=== PATIENT | male | born 1980 | race African-American/Black ===

== ENCOUNTER 2020-11-12 16:49 | Emergency (ER) | payer OTHER, SELFPAY ==
--- NOTE | ~2020-11-12 | XR_ITS ---
EXAMINATION: XR KNEE, RIGHT CLINICAL INFORMATION: Pain. No history of injury. COMPARISON: None TECHNIQUE: Two views of the right knee. FINDINGS: Bones and soft tissues are normal. No fracture or joint effusion. Alignment is anatomic. Joint spaces are well maintained. No abnormal soft tissue calcification. XR/XR knee RT 2V IMPRESSION: Normal right knee.
[2020-11-12 17:00] VITALS: BP 123/87; PULSE 80; RESP 18; TEMP 36.1; O2SAT 99; BMI 21.9
--- NOTE | 2020-11-12 18:29 | ED.GENADULT ---
HPI - General Adult General Chief complaint: Extremity Injury, Lower Stated complaint: Knee pain Time Seen by Provider: 11/12/20 17:26 Source: patient Mode of arrival: ambulatory Limitations: no limitations History of Present Illness HPI narrative: 40-year-old male previously healthy here with right knee swelling. The patient tells me that he has had years of various joint swelling and pain. He denies any fevers or chills. Denies weight loss or rash. Tells me that he went to his primary care doctor today however due to the wait t he left prior to being seen by his primary care doctor. It is recommended that he follow up with rheumatology in the past however he has not done so. Related Data Previous Rx's Medication Instructions Recorded prednisone 40 mg PO DAILY #10 tab 11/12/20 Allergies Allergy/AdvReac Type Severity Reaction Status Date / Time Penicillins AdvReac Intermediate Unknown Verified 11/12/20 15:36 Review of Systems Review of Systems: Yes all other systems are reviewed and are negative Constitutional: Constitutional: Reports no additional constitutional complaints, Denies body ache(s), Denies chills, Denies fever(s), Denies headache(s) and Denies weakness Eyes: Eyes: Reports no additional eye complaints and Denies change in vision ENT: Reports system reviewed and no additional complaints, except as documented, Denies dizziness, Denies headache(s), Denies nasal congestion, Denies nasal discharge and Denies neck pain Cardiovascular: Cardiovascular: Reports no additional cardiovascular complaints, Denies chest pain, Denies leg edema and Denies dyspnea Respiratory: Respiratory: Reports no additional respiratory complaints, Denies cough and Denies dyspnea Gastrointestinal: Gastrointestinal: Reports no additional gastrointestinal complaints, Denies abdominal pain, Denies diarrhea, Denies nausea and Denies vomiting Genitourinary: Genitourinary: Denies urinary incontinence Musculoskeletal: Musculoskeletal: Reports no additional musculoskeletal complaints, Denies back pain, Denies arthralgias, Reports joint swelling, Denies limited range of motion, Denies neck pain, Denies numbness and Denies tingling Integumentary/Breasts: Skin/Breast: Reports system reviewed and no additional complaints, except as docu and Denies rash Neurologic: Reports system reviewed and no additional complaints, except as documented, Denies Abnormal speech present, Denies dizziness, Denies headache(s), Denies numbness, Denies tingling and Denies weakness PMF Past Medical History Attestation statement: The following information was validated with the patient. Source: old records reviewed and nursing notes reviewed Surgical History No history of previous surgery Family History Family History Mother No problems noted. Father No problems noted. Social History Social History Alcohol intake: never Smoking Status: Current every day smoker Smoked in Last 30 Days: No Use of substances other than those prescribed or required for medical reasons: No Advance Directives: No Advance Directives Information Provided: Yes Physical Exam Vital Signs: Vital Signs: Last Vital Signs Temp 97.0 F 11/12/20 17:00 Pulse 80 11/12/20 17:00 Resp 18 11/12/20 17:00 BP 123/87 11/12/20 17:00 Pulse Ox 99 11/12/20 17:00 Body Mass Index 21.9 Const: General: cooperative, healthy appearing, comfortable and no acute distress Orientation/consciousness: patient oriented x3 Limitations: no limitations HENMT: Head: Yes normal to inspection Ears: hearing grossly normal bilaterally General nose exam: Normal external nose present Face and sinus: Yes normal facial exam Mouth: Normal oral and palatal mucosa present Throat: Yes posterior oropharynx normal Eyes: General: appearance normal, both eyes and all related structures Pupils: Equal, round and reactive pupils present Neck: Neck: Yes normal visual inspection Chest: Chest palpation & inspection: normal inspection of the chest Resp: Effort & Inspection: normal respiratory effort Auscultation: clear to auscultation bilaterally Cardio: Rate: regular rate Rhythm: regular rhythm Peripheral pulses: Peripheral pulses 2+ throughout GI: Inspection: Yes normal to inspection Palpation (GI): Soft to palpation and nontender Auscultation: normal bowel sounds Back/Spine/Pelvis: Thoracic/Lumbar Spine: thoracic and lumbar spine normal to inspection Skin: General skin exam: no rashes or lesions noted Neuro: General: patient oriented x3, no focal motor deficits and normal sensation to monofilament Cranial nerves: Yes Equal, round and reactive pupils present Cognition (Neuro): normal cognition Speech: No Abnormal speech present Gait exam (Neuro): Normal gait present Motor exam (neuro): 5/5 motor strength present throughout Extrem: Other: To the right knee there is mild warmth with moderate swelling. No pain. Full range of motion. No redness General: Yes normal to inspection Course Course Course Narrative: Atraumatic right knee swelling with mild warmth but no pain and full range of motion. Less likely septic joint with full range of motion. Patient has a history of multiple episodes of joint swelling and has been recommended to follow up with Dermatology in the past but has not done so. Patient here requesting an anti-inflammatory and a rheumatology referral. X-ray shows no bony abnormality. Likely underlying gout versus RA. Recommend short course of prednisone and follow up with Dermatology Reviewed worrisome signs and symptoms and when to return to the emergency department. Comfortable discharge home. Medical Decision Making Medical Records Medical records reviewed: Yes I reviewed the patient's medical records. Lab Data Lab results reviewed: Yes I reviewed the patient's lab results. Imaging Data knee xray: Attestation: I personally reviewed and interpreted this imaging study as follows: Radiologist's impression: EXAMINATION: XR KNEE, RIGHT CLINICAL INFORMATION: Pain. No history of injury. COMPARISON: None TECHNIQUE: Two views of the right knee. FINDINGS: Bones and soft tissues are normal. No fracture or joint effusion. Alignment is anatomic. Joint spaces are well maintained. No abnormal soft tissue calcification. XR/XR knee RT 2V IMPRESSION: Normal right knee. Discharge Plan Discharge Clinical Impression: Swelling of joint, knee, right Patient Disposition: Home, Self-Care Instructions: Swollen Knee Joint (ED) Additional Instructions: ice, nora wrap for comfort Prescriptions: New prednisone 20 mg tablet 40 mg PO DAILY Qty: 10 RF: 0 Referrals: Jaida Mesa MD [Physician] - 2 days Interventions: ED Discharge Assessment Last Done: 11/12/20 18:11 Discharge Date/Time: 11/12/20 18:11
== END 2020-11-12 18:11 | disposition home or self-care (01) ==
PROVIDERS: Emergency Provider Internal Medicine
DX: M25.461 Effusion, right knee (principal); M25.561 Pain in right knee; F17.200 Nicotine dependence, unspecified, uncomplicated
CPT/HCPCS: 73560; 99283; 99284

== ENCOUNTER 2020-12-25 11:04 | Outpatient (REF) | payer OTHER, SELFPAY | END 2020-12-25 11:05 | disposition home or self-care (01) | LOC: HO.XRAY 11:04 | PROVIDERS: PCP Internal Medicine; Visit Provider Student in an Organized Health Care Education/Training Program | DX: M25.50 Pain in unspecified joint (principal) | CPT/HCPCS: 99202 ==

== ENCOUNTER 2021-01-06 15:21 | Outpatient (REF) | payer OTHER, SELFPAY ==
--- NOTE | ~2021-01-06 | XR_ITS ---
EXAMINATION: XR BILATERAL KNEE XR LUMBAR SPINE XR AP PELVIS CLINICAL INFORMATION: Pain. COMPARISON: None. TECHNIQUE: AP pelvis one view. Lumbar spine 4 views. 3 views each knee. FINDINGS: AP PELVIS: There is normal symmetry of bilateral hip joints and SI joints. No bony erosive changes. There is no acute fracture, lytic or sclerotic process. LUMBAR SPINE: There is normal lumbar lordosis. The vertebral heights and alignment are normal. There is mild loss of L5-S1 disc height with ventral spondylosis. Rest of the disc heights are normal. No visible acute fracture, dislocation or lytic process seen. RIGHT KNEE: The tricompartment joint space is maintained normal. No loose bodies, bony erosive changes or abnormal joint effusion seen. LEFT KNEE: The tricompartment joint space is maintained normal. There is no acute fracture, lytic or sclerotic process. No abnormal joint effusion seen. XR/XR knee LT 3V IMPRESSION: Unremarkable AP pelvis exam. Degenerative disc changes with ventral spondylosis at L5-S1 disc level. Unremarkable bilateral knee exam.
--- NOTE | ~2021-01-06 | XR_ITS ---
EXAMINATION: XR BILATERAL KNEE XR LUMBAR SPINE XR AP PELVIS CLINICAL INFORMATION: Pain. COMPARISON: None. TECHNIQUE: AP pelvis one view. Lumbar spine 4 views. 3 views each knee. FINDINGS: AP PELVIS: There is normal symmetry of bilateral hip joints and SI joints. No bony erosive changes. There is no acute fracture, lytic or sclerotic process. LUMBAR SPINE: There is normal lumbar lordosis. The vertebral heights and alignment are normal. There is mild loss of L5-S1 disc height with ventral spondylosis. Rest of the disc heights are normal. No visible acute fracture, dislocation or lytic process seen. RIGHT KNEE: The tricompartment joint space is maintained normal. No loose bodies, bony erosive changes or abnormal joint effusion seen. LEFT KNEE: The tricompartment joint space is maintained normal. There is no acute fracture, lytic or sclerotic process. No abnormal joint effusion seen. XR/XR pelvis 1-2V IMPRESSION: Unremarkable AP pelvis exam. Degenerative disc changes with ventral spondylosis at L5-S1 disc level. Unremarkable bilateral knee exam.
--- NOTE | ~2021-01-06 | XR_ITS ---
EXAMINATION: XR BILATERAL KNEE XR LUMBAR SPINE XR AP PELVIS CLINICAL INFORMATION: Pain. COMPARISON: None. TECHNIQUE: AP pelvis one view. Lumbar spine 4 views. 3 views each knee. FINDINGS: AP PELVIS: There is normal symmetry of bilateral hip joints and SI joints. No bony erosive changes. There is no acute fracture, lytic or sclerotic process. LUMBAR SPINE: There is normal lumbar lordosis. The vertebral heights and alignment are normal. There is mild loss of L5-S1 disc height with ventral spondylosis. Rest of the disc heights are normal. No visible acute fracture, dislocation or lytic process seen. RIGHT KNEE: The tricompartment joint space is maintained normal. No loose bodies, bony erosive changes or abnormal joint effusion seen. LEFT KNEE: The tricompartment joint space is maintained normal. There is no acute fracture, lytic or sclerotic process. No abnormal joint effusion seen. XR/XR knee RT 3V IMPRESSION: Unremarkable AP pelvis exam. Degenerative disc changes with ventral spondylosis at L5-S1 disc level. Unremarkable bilateral knee exam.
--- NOTE | ~2021-01-06 | XR_ITS ---
EXAMINATION: XR BILATERAL KNEE XR LUMBAR SPINE XR AP PELVIS CLINICAL INFORMATION: Pain. COMPARISON: None. TECHNIQUE: AP pelvis one view. Lumbar spine 4 views. 3 views each knee. FINDINGS: AP PELVIS: There is normal symmetry of bilateral hip joints and SI joints. No bony erosive changes. There is no acute fracture, lytic or sclerotic process. LUMBAR SPINE: There is normal lumbar lordosis. The vertebral heights and alignment are normal. There is mild loss of L5-S1 disc height with ventral spondylosis. Rest of the disc heights are normal. No visible acute fracture, dislocation or lytic process seen. RIGHT KNEE: The tricompartment joint space is maintained normal. No loose bodies, bony erosive changes or abnormal joint effusion seen. LEFT KNEE: The tricompartment joint space is maintained normal. There is no acute fracture, lytic or sclerotic process. No abnormal joint effusion seen. XR/XR lumbar spine 2-3V IMPRESSION: Unremarkable AP pelvis exam. Degenerative disc changes with ventral spondylosis at L5-S1 disc level. Unremarkable bilateral knee exam.
[2021-01-06 16:04] LABS: MANUAL DIFF FLAG NO
[2021-01-06 16:08] LABS: Basophils Absolute Auto 0.1 X10*3/uL (0.0-0.2); Basophils Percent Auto 1.4 % (0-2); Eosinophils Absolute Auto 0.3 X10*3/uL (0.0-0.4); Eosinophils Percent Auto 3.8 % (0-4); Hematocrit 45.5 % (42-52); Hemoglobin 15.3 g/dl (14.0-18.0); Imm Gran Abs Auto 0.01 X10*3/uL (0.00-0.03); Imm Gran Pct Auto 0.2 % (0.0-0.4); Lymphocytes Absolute Auto 2.9 X10*3/uL (1.2-4.9); Lymphocytes Percent Auto 43.4 % (20-40); Mean Corpuscular HGB Conc 33.6 g/dl (31.0-36.0); Mean Corpuscular Hemoglobin 31.8 pg (27.0-33.0); Mean Corpuscular Volume 94.6 fL (80-98); Mean Platelet Volume 10.1 fL (9.4-12.4); Monocytes Absolute Auto 0.6 X10*3/uL (0.1-1.2); Monocytes Percent Auto 8.3 % (2-11); Neutrophils Absolute Auto 2.9 X10*3/uL (2.0-8.3); Neutrophils Percent Auto 42.9 % (45-73); Platelet Count 312 X10*3/uL (160-400); Red Blood Count 4.81 X10*6/uL (4.60-5.80); Red Cell Distribution Width 14.1 % (11.0-16.0); White Blood Count 6.6 X10*3/uL (4.8-10.8)
[2021-01-06 16:10] LABS: Glucose Urine UA NEG (NEG); Leukocyte Esterase Urine NEG (NEG); Nitrite Urine NEG (NEG); Specific Gravity - Urine 1.025 (1.005-1.025); Urine Blood NEG (NEG); Urine Ketones NEG (NEG); Urine Protein NEG (NEG-TRACE)
[2021-01-06 16:17] LABS: Appearance Urine CLEAR; Color Urine YELLOW
[2021-01-06 16:38] LABS: RBC Urine 0-2 /HPF (0); WBC Urine 0-2 /HPF (0-4)
[2021-01-06 16:39] LABS: Mucus Urine 1+ /LPF; Squamous Epithelial Cell Urine TRACE /LPF
[2021-01-06 16:46] LABS: Erythrocyte Sedimentation Rate 2 MM/HR (0-15)
[2021-01-06 16:51] LABS: Alanine Aminotransferase 17 U/L (0-40); Albumin Level 4.2 g/dL (3.5-5.0); Alkaline Phosphatase 82 U/L (39-117); Anion Gap 12 (12-20); Aspartate Amino Transferase 17 U/L (5-37); Bilirubin Total 0.4 mg/dL (0.0-1.0); Blood Urea Nitrogen 12 mg/dL (9-16); C Reactive Protein 0.12 mg/dL (< or = 0.50); Calcium 9.2 mg/dL (8.4-10.2); Carbon Dioxide 29 mmol/L (22-29); Chloride 106 mmol/L (96-108); Estimated Glomerular Filt Rate > 60; Glucose Random 87 mg/dL (60-115); Potassium 4.1 mmol/L (3.3-5.1); Rheumatoid Factor < 15.0 IU/mL (<15.0); Sodium 143 mmol/L (135-145); Uric Acid 4.5 mg/dL (3.4-7.0)
[2021-01-07 10:16] LABS: Lyme Blot >10.00 index
[2021-01-07 13:57] LABS: Antibody to SS-A Antigen <1.0 NEG AI (<1.0 NEG); Antibody to SS-B Antigen <1.0 NEG AI (<1.0 NEG)
[2021-01-08 00:06] LABS: Anti Nuclear Antibody Pattern Nuclear, Speckled; Anti Nuclear Antibody Screen POSITIVE (NEGATIVE); Anti Nuclear Antibody Titer 1:40 titer
[2021-01-11 12:21] LABS: Cyclic Citrullinated Peptide <16 UNITS
[2021-01-12 00:06] LABS: 18 KD (IgG) Band REACTIVE; 23 KD (IgG) Band NON-REACTIVE; 23 KD (IgM) Band NON-REACTIVE; 28 KD (IgG) Band REACTIVE; 30 KD (IgG) Band REACTIVE; 39 KD (IgM) Band REACTIVE; 41 KD (IgM) Band NON-REACTIVE; 45 KD (IgG) Band REACTIVE; 58 KD (IgG) Band REACTIVE; 66 KD (IgG) Band REACTIVE; 93 KD (IgG) Band REACTIVE; Lyme IgG Blot Interp POSITIVE (NEGATIVE); Lyme IgM Blot Interp NEGATIVE (NEGATIVE)
[2021-01-12 09:34] LABS: Lyme Abs Screen POSITIVE
[2021-01-13 15:11] LABS: HLA B27 Negative (Negative)
== END 2021-01-06 15:22 | disposition home or self-care (01) ==
LOC: HO.LAB 15:21
PROVIDERS: Visit Provider Student in an Organized Health Care Education/Training Program
DX: M25.50 Pain in unspecified joint (principal)
CPT/HCPCS: 36415; 72100; 72170; 73562; 80053; 81001; 84550; 85025; 85652; 86038; 86039; 86140; 86200; 86235; 86431; 86617; 86618; 86812

== ENCOUNTER → 2021-01-13 14:38 | Outpatient (BNVA) | payer OTHER, SELFPAY | PROVIDERS: PCP Internal Medicine; Visit Provider Student in an Organized Health Care Education/Training Program | DX: A69.20 Lyme disease, unspecified (principal); M25.50 Pain in unspecified joint | CPT/HCPCS: 99212 ==

== ENCOUNTER 2021-03-03 18:31 | Emergency (ER) | payer OTHER, SELFPAY ==
[2021-03-03 19:05] VITALS: BP 148/99; PULSE 66; RESP 18; TEMP 37; O2SAT 100; BMI 22.5
--- NOTE | 2021-03-03 20:42 | ED_ITS ---
HPI - General Adult General Chief complaint: General Medical Stated complaint: Leg injury Time Seen by Provider: 03/03/21 20:34 Source: patient Mode of arrival: ambulatory Limitations: no limitations History of Present Illness HPI narrative: Patient is a 40-year-old male with a past medical history of Lyme disease 3 years ago. He states he has severe joint numbness in inflammation and bilateral leg weakness, he walks with a cane. He states he did just finish a 1 month prescription of doxycycline in the end of January, he states he took 5 weeks but did not take the 6 week because his symptoms were getting worse. He has tried to make an appointment with his PCP for referral to neurology but has been unsuccessful. Patient is seeking a referral to Neurology. Related Data Previous Rx's Medication Instructions Recorded doxycycline hyclate 100 mg tablet 100 mg PO BID #56 tab 01/13/21 Allergies Allergy/AdvReac Type Severity Reaction Status Date / Time Penicillins AdvReac Intermediate Swelling Verified 01/13/21 14:41 Review of Systems Review of Systems: Yes all other systems are reviewed and are negative [facility] Past Medical History Surgical History No history of previous surgery Family History Family History Mother No problems noted. Father No problems noted. Social History Social History Alcohol intake: never Patient Tobacco Use Status: Former Tobacco user Tobacco use type: Cigarette Advance Directives: No Advance Directives Information Provided: Yes Physical Exam Vital Signs: Vital Signs: Last Vital Signs Temp 98.6 F 03/03/21 19:05 Pulse 66 03/03/21 19:05 Resp 18 03/03/21 19:05 BP 148/99 H 03/03/21 19:05 Pulse Ox 100 03/03/21 19:05 Body Mass Index 22.5 Const: General: cooperative, healthy appearing, comfortable and no acute distress Nutritional Appearance: thin Orientation/consciousness: patient oriented x3 Limitations: ambulation with cane Eyes: General: appearance normal, both eyes and all related structures Resp: Effort & Inspection: normal respiratory effort and able to speak in complete sentences Neuro: General: patient oriented x3 Gait exam (Neuro): Assistive device used Motor exam (neuro): strength not 5/5 throughout (5/5 upper extremities, 3/5 lower extremities) Sensory Exam: Normal double simultaneous stimulation for sensation Extrem: General: Yes normal to inspection and Yes full ROM Discharge Plan Discharge Clinical Impression: Bilateral leg weakness, Lyme disease Patient Disposition: Home, Self-Care Additional Instructions: I have sent a referral for you to see 1 of the neurologist at [facility], please be sure to follow-up with this appointment and her PCP if her symptoms continue. Prescriptions: No Action doxycycline hyclate 100 mg tablet 100 mg PO BID Qty: 56 RF: 0 Referrals: Polo London MD [Physician] - 2 days (Lower extremity weakness status post Lyme disease with 30 days of doxy)
== END 2021-03-03 20:45 | disposition home or self-care (01) ==
PROVIDERS: Emergency Provider Emergency Medicine; PCP Internal Medicine
DX: A69.20 Lyme disease, unspecified (principal); M62.81 Muscle weakness (generalized); F17.210 Nicotine dependence, cigarettes, uncomplicated; Z71.6 Tobacco abuse counseling; Z79.899 Other long term (current) drug therapy
CPT/HCPCS: 99283

== ENCOUNTER 2021-05-04 09:08 | Day surgery (SDC) | payer OTHER, SELFPAY ==
--- NOTE | ~2021-05-04 | FL_ITS ---
EXAMINATION: XR LUMBAR PUNCTURE CLINICAL INFORMATION: Peripheral neuropathy. COMPARISON: None TECHNIQUE: Following explaining fluoroscopy-guided lumbar puncture procedure, benefits and risk, a written consent was obtained. Patient was placed prone on fluoroscopy table and low back area was cleaned and draped in usual sterile manner. 1% lidocaine was injected puncture site. A 22-gauge spinal needle was then advanced from the left upper midlung region intrathecally at the L4-L5 disc level. A observing CSF return following removal of the stylet, patient was quickly placed in left lateral decubitus view and opening CSF pressure was obtained. Subsequently fluid was collected in 4 test tubes. The stylet was introduced the needle removed with complete hemostasis achieved at puncture site. Sterile dressing applied postprocedure. Patient tolerated procedure extremely well. FINDINGS: Fluoroscopy images the vertebral heights, alignment and disc heights are normal. There is a needle positioned at L4-L5 disc level. The opening CSF pressure is high measuring 18 cm of water. Approximately 7 mL of clear CSF fluid was collected in 4 test tubes. FLUOROSCOPY TIME: 0.2 minutes DOSE AREA PRODUCT: 0.987 uGy-m2 (microgray-meter squared) FL/FL guided lumbar puncture LP IMPRESSION: Successful fluoroscopy-guided L4-L5 lumbar puncture performed. Opening CSF pressure measured 18 cm of water.
[2021-05-04 09:41] VITALS: BMI 22.5
[2021-05-04 10:09] LABS: MANUAL DIFF FLAG NO
[2021-05-04 10:12] LABS: Basophils Absolute Auto 0.1 X10*3/uL (0.0-0.2); Eosinophils Absolute Auto 0.3 X10*3/uL (0.0-0.4); Eosinophils Percent Auto 4.1 % (0-4); Hematocrit 44.4 % (42-52); Hemoglobin 15.3 g/dl (14.0-18.0); Imm Gran Abs Auto 0.01 X10*3/uL (0.00-0.03); Imm Gran Pct Auto 0.2 % (0.0-0.4); Lymphocytes Absolute Auto 2.9 X10*3/uL (1.2-4.9); Lymphocytes Percent Auto 47.5 % (20-40); Mean Corpuscular HGB Conc 34.5 g/dl (31.0-36.0); Mean Corpuscular Hemoglobin 31.4 pg (27.0-33.0); Mean Corpuscular Volume 91.2 fL (80-98); Mean Platelet Volume 10.1 fL (9.4-12.4); Monocytes Absolute Auto 0.5 X10*3/uL (0.1-1.2); Monocytes Percent Auto 7.9 % (2-11); Neutrophils Absolute Auto 2.4 X10*3/uL (2.0-8.3); Neutrophils Percent Auto 39.3 % (45-73); Platelet Count 281 X10*3/uL (160-400); Red Blood Count 4.87 X10*6/uL (4.60-5.80); Red Cell Distribution Width 13.2 % (11.0-16.0); White Blood Count 6.1 X10*3/uL (4.8-10.8)
[2021-05-04 10:18] LABS: INTERNATIONAL NORM RATIO 0.9 (0.9-1.1); Prothrombin Time 10.4 SEC (9.9-13.0)
[2021-05-04 10:21] LABS: Partial Thromboplastin Time 31.6 SEC (24.1-38.0)
[2021-05-04 12:25] VITALS: BP 142/82; PULSE 68; RESP 18; TEMP 36.6; O2SAT 98
[2021-05-04 12:55] VITALS: BP 123/85; PULSE 65; RESP 17; O2SAT 99
[2021-05-04 13:13] LABS: Glucose CSF 60 mg/dL; Total Protein CSF 57.2 mg/dL (15-45)
[2021-05-04 13:25] VITALS: BP 128/81; PULSE 61; RESP 18; O2SAT 99
[2021-05-04 13:32] LABS: CSF Appearance Clear, Colorless; CSF Tube # 1
[2021-05-04 13:55] VITALS: BP 125/82; PULSE 69; RESP 18; O2SAT 99
[2021-05-04 13:58] LABS: Oligoclonal Serum Yes
[2021-05-04 14:02] LABS: Appearance CSF CLEAR; CSF Tube # 4; Color CSF COLORLESS; White Blood Cell CSF 1 MM*3
[2021-05-04 14:03] LABS: Red Blood Cell CSF 0 MM*3
[2021-05-04 14:07] LABS: CSF Monos 11 %; Lymphocytes CSF 89 %
[2021-05-04 14:25] VITALS: BP 137/83; PULSE 70; RESP 18; TEMP 36.6; O2SAT 100
[2021-05-07 14:36] LABS: Albumin 4.1 g/dL (3.5-5.2); Albumin, CSF 41.6 mg/dL (8.0-42.0); IgG 951 mg/dL (600-1640); IgG Synthesis Rate -0.7 mg/24 h (-9.9-3.3); IgG, CSF 4.8 mg/dL (0.8-7.7)
== END 2021-05-04 14:33 | disposition home or self-care (01) ==
LOC: HO.SSS 09:09
PROVIDERS: Psychiatry & Neurology Neurology; PCP Internal Medicine; Visit Provider Radiology Diagnostic Radiology
PROC: 009U3ZZ Drainage of Spinal Canal, Percutaneous Approach (ICD-10-PCS; CPT 62270; principal; 2021-05-04 11:00)
DX: G62.9 Polyneuropathy, unspecified (principal)
CPT/HCPCS: 36415; 62328; 82042; 82945; 83916; 84157; 85025; 85610; 85730; 87015; 87070; 87205; 89051

== ENCOUNTER 2021-05-11 10:45 | Outpatient (REF) | payer OTHER, SELFPAY ==
[2021-05-12 08:07] LABS: Syphilis Screen Nonreactive (Nonreactive)
[2021-05-12 08:30] LABS: HBS Num1 1.28 mIU/mL (0-7.99); HBsAGNum1 0.17 S/CO (0.00-0.99); HIV AB/AG Nonreactive (Nonreactive); HIV Num 1 0.09 S/CO (0.00-0.99); Hepatitis B Surface Antigen Negative (Negative); ~HepC Num1 0.13 S/CO (0.00-0.79); ~Hepatitis B Surface Antibody NONREACTIVE (Nonreactive); ~Hepatitis C Antibody Nonreactive (Nonreactive)
[2021-05-13 13:32] LABS: Immunoglobulin A 202 mg/dL (47-310)
[2021-05-13 19:52] LABS: Immunoglobulin G Subclass 1 495 mg/dL (382-929); Immunoglobulin G Subclass 2 508 mg/dL (241-700); Immunoglobulin G Subclass 3 74 mg/dL (22-178); Immunoglobulin G Subclass 4 14.6 mg/dL (4-86); Immunoglobulin G Total 1156 mg/dL (600-1640)
[2021-05-14 08:41] LABS: TS Negative Control Passed; TS Panel A 0; TS Panel B 0; TS Positive Control Passed; TSpotTB Negative (SeeBelow)
== END 2021-05-11 10:46 | disposition home or self-care (01) ==
LOC: HO.LAB 10:45
PROVIDERS: PCP Internal Medicine; Visit Provider Internal Medicine
DX: Z11.4 Encounter for screening for human immunodeficiency virus [HIV] (principal); R76.8 Other specified abnormal immunological findings in serum; M79.2 Neuralgia and neuritis, unspecified; Z87.891 Personal history of nicotine dependence; Z79.899 Other long term (current) drug therapy
CPT/HCPCS: 36415; 82784; 86481; 86706; 86780; 86803; 87340; 87389; 99202

== ENCOUNTER 2021-05-19 16:20 | Outpatient (REF) | payer OTHER, SELFPAY | END 2021-05-19 16:21 | disposition home or self-care (01) | LOC: HO.MRI 16:20 | PROVIDERS: Visit Provider Psychiatry & Neurology Neurology | DX: Z13.89 Encounter for screening for other disorder (principal) ==

== ENCOUNTER 2021-06-11 08:00 | Outpatient (RCR) | payer OTHER, SELFPAY ==
[2021-06-09 08:06] VITALS: BP 132/85; PULSE 90
--- NOTE | 2021-06-09 11:19 | MHC.PT.EP ---
[facility] [place] Office [place] Office [place] Office [address] Viridiana Muñoz [address] [phone] F: [phone] F: [phone] F: [phone] F: [phone] Physical Therapy Plan of Care Date of Evaluation: Date of Surgery: Diagnosis: gait disorder, Lyme Assessment: 40 y/o male referred to PT with gait disorder, Lyme. Of note, he reports I just woke up stiff one morning in 2017 of insidious onset and had on/off wandering joint pain and swelling. He eventually f/u with rheumatology and was then dx with chronic Lyme disease December 2020. He was giving doxycycline but did not finish the dose as he felt like it made his sx worse. His sx include poor balance, difficulty walking (uses single point cane), weakness B LE, and numbness/ tingling/ burning of entire B LE and some numbness in his abdomen. Denies changes in bowel/ bladder. 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 Examination shows decreased lumbar AROM, decreased B LE strength (< 3+/5 throughout B LE), lacks proprioception at B great toes (intact at ankle), patella DTR 3+ B, achilles DTR 2+B, (-) for clonus, normal coordination/ SHIRA/ heel-ivan, poor balance, and impaired gait pattern. S/s consistent with Lyme Disease, however ? whether there is lumbar spine involvement resulting in significant weakness. Recommend PT 2x/week for 5 weeks to address impairments, implement HEP, and optimize functional mobility. Frequency and Duration: The patient will be seen 2x/week for 5 weeks Short Term Goals: 3 weeks 1. I with HEP 2. Pt will improve LE strength by one MMT grade to facilitate ambulation 3. Demonstrate SLR with normal trajectory Night Clerk Goals: 5 weeks 1. I with HEP and self management of sx 2. Pt will be able to ambulate > 30min with LRAD 3. Pt will be able to ascend/ descend stairs with rail Treatment Plan: Modalities to reduce pain, spasms and effusion. Manual therapy to restore motion and function. Therapeutic exercise to improve strength and flexibility. Neuromuscular re-education for posture and balance. Therapeutic activities to return to functional activities of daily living. Electronically signed by: Shira Dunne PT Please sign and return to therapist. Thank you for your referral.
--- NOTE | 2021-06-22 14:49 | MHC.PT.DC ---
[facility] [place] Office [place] Office [place] Office [address] Viridiana Muñoz [address] [facility] [phone] F: [phone] F: [phone] F: [phone] F: [phone] Physical Therapy Discharge Report Diagnosis: gait disorder, Lyme Date of Surgery: Date of Evaluation: 06/09/21 Date of Discharge: 06/22/21 Treatments to Date: 2 Cancellations to Date: 0 No Shows to Date: 2 Discharge Status: Visit Non-compliance Discharge Summary: D/c secondary to noncompliance with scheduling policy and 3 consecutive no show visit. Electronically signed by: Shira Dunne PT Please sign and return to therapist. Thank you for your referral.
== END 2021-06-22 14:50 | disposition home or self-care (01) ==
LOC: HO.PT 08:00
PROVIDERS: Visit Provider Psychiatry & Neurology Neurology
DX: R26.9 Unspecified abnormalities of gait and mobility (principal)
CPT/HCPCS: 97110; 97162

== ENCOUNTER 2021-10-12 18:10 | Outpatient (REF) | payer OTHER, SELFPAY ==
--- NOTE | ~2021-10-12 | MR_ITS ---
EXAMINATION: MR CERVICAL SPINE WITHOUT AND WITH CONTRAST MR THORACIC SPINE WITHOUT AND WITH CONTRAST CLINICAL INFORMATION: Paraparesis. COMPARISON: None available. TECHNIQUE: MRI of the cervical and thoracic spine was obtained using routine sequences without and following the administration of 9 mL of Gadavist intravenous contrast. FINDINGS: Cervical Spine: Straightening of the normal cervical lordosis. Otherwise, normal anatomic alignment. Normal, homogeneous marrow signal throughout. The vertebral body heights are maintained. Mild degenerative disc disease throughout the cervical spine with partial disc desiccation. Otherwise, the intervertebral disc heights are largely maintained. The spinal cord is normal in appearance. No demonstrated spinal cord signal abnormalities. No abnormal contrast enhancement. Limited evaluation of the soft tissues of the neck without demonstrated abnormalities. The flow voids of the major cervical vessels are maintained. Normal appearance of the cervicomedullary junction and visualized posterior fossa. SPINAL LEVELS: C2-C3: Mild posterior disc bulging. There is mild left and no right uncovertebral joint arthropathy. There is no facet joint arthropathy. There is no neural foraminal stenosis. There is no spinal canal stenosis. C3-C4: Mild posterior disc bulging. There is mild bilateral uncovertebral joint arthropathy. There is mild bilateral facet joint arthropathy. There is no neural foraminal stenosis. There is no spinal canal stenosis. C4-C5: Mild disc-osteophyte complex. There is mild bilateral uncovertebral joint arthropathy. There is no facet joint arthropathy. There is no neural foraminal stenosis. There is no spinal canal stenosis. C5-C6: Minimal posterior disc bulging. There is mild bilateral uncovertebral joint arthropathy. There is mild left and no right facet joint arthropathy. There is mild left and no right neural foraminal stenosis. There is no spinal canal stenosis. C6-C7: Mild disc-osteophyte complex. There is no uncovertebral joint arthropathy. There is mild bilateral facet joint arthropathy. There is no neural foraminal stenosis. There is no spinal canal stenosis. C7-T1: Mild posterior disc bulging. There is no uncovertebral joint arthropathy. There is no facet joint arthropathy. There is no neural foraminal stenosis. There is no spinal canal stenosis. Thoracic Spine: Normal anatomic alignment. There is compression deformity of the superior endplate of T8 with 25% loss of central body height. Associated marrow edema and enhancement along the superior endplate of T8. The remaining thoracic vertebral body heights are maintained. There is a nonspecific 0.6 cm T2 hyperintense lesion with associated enhancement along the superior endplate of T1. There is a 1.6 cm lipid rich lesion suggestive of a hemangioma within the T9 vertebral body. There is a heterogeneously T2 hyperintense and enhancing lesion within the dorsal epidural space at the levels of T2-T4, measuring 2.4 x 1.1 x 4.4 cm. Moderate tapered thickening of the dorsal epidural space surrounding this lesion extending from the levels of T2-T7. There is also an enhancing lesion with similar characteristics in the dorsal epidural space centered at the levels of T10-T11, measuring 1.1 x 0.7 x 2.3 cm. Tapered thickening of the dorsal epidural space surrounding this lesion from T9-T12. Enhancing tissue at the levels of T10-T11 extends into the posterior paraspinal soft tissues surrounding the T10 spinous process and T10-T11 interspinous ligament. There is T2 hyperintensity and enhancement of the T10 posterior elements. No additional suspicious marrow signal abnormalities. There is severe compression of the spinal cord at the levels of T3-T4. There appears to be associated mildly increased T2 signal within the spinal cord from the levels of T3-T5. No additional spinal cord signal abnormalities. No demonstrated no demonstrated intrathecal or intramedullary lesions. No additional significant abnormalities of the paraspinal musculature. Limited evaluation of the intrathoracic structures without significant abnormalities. The descending thoracic aorta is of normal contour and caliber. AXIAL SPINAL LEVELS: Normal annular contours. There is mild multilevel facet joint arthropathy. The aforementioned lesion at the levels of T2-T4 partially extends into the left-sided T3-T4 neural foramen causing moderate stenosis. No additional neural foraminal stenosis. As noted above, there is severe spinal canal stenosis at the levels of T3 and T4. No additional spinal canal stenosis. MR/MR thoracic spine wo/w con IMPRESSION: 1. There are prominent enhancing lesions centered within the dorsal epidural space at the levels of T2-T4 and T10-T11. This leads to severe spinal canal stenosis with cord compression at the levels of T3-T4. The lesion at the level of T10-T11 is associated with enhancement and edema within the posterior elements of T10 with extraosseous components in the posterior paraspinal soft tissues surrounding the T10 spinous process and T10-T11 interspinous ligament. There is also a nonspecific 0.6 cm enhancing lesion in the T1 vertebral body. Overall findings are suspicious for nonspecific metastatic disease. 2. Mild compression deformity of the superior endplate of T8 with 25% loss of central body height. Associated marrow edema and enhancement may be posttraumatic in nature. However, it would be difficult to fully exclude an underlying lesion on this exam. 3. Mild multilevel degenerative spondyloarthropathy of the cervical spine as described in detail above. No overt cervical spinal canal stenosis or nerve root compression. This critical result was discussed with Dr. London at 19:30 on 10/12/2021 and it was ascertained that the content and urgency of the report was understood at the time of direct communication.
== END 2021-10-12 18:11 | disposition home or self-care (01) ==
LOC: HO.MRI 18:10
PROVIDERS: Visit Provider Psychiatry & Neurology Neurology
DX: G82.20 Paraplegia, unspecified (principal)
CPT/HCPCS: 72156; 72157; A9585

== ENCOUNTER → 2021-10-22 09:43 | Outpatient (BNV) | payer OTHER, SELFPAY | PROVIDERS: PCP Internal Medicine; Referring Provider Internal Medicine; Visit Provider Internal Medicine | DX: D43.4 Neoplasm of uncertain behavior of spinal cord (principal) | CPT/HCPCS: 99204; 99214 ==

== ENCOUNTER 2021-11-01 07:00 | Day surgery (SDC) | payer OTHER, SELFPAY ==
--- NOTE | 2021-10-29 10:25 | HO.ANESPROP2 ---
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 Father No problems noted. Surgical History Surgical History (Updated 10/22/21 @ 10:11 by Rosi Jane MD) No history of previous surgery Social History Social History Housing: House Alcohol intake: never Patient Tobacco Use Status: Current everyday Tobacco user Tobacco use type: Cigarette Cigarettes Per Day: 3 Years Smoked: 15 Smoked in Last 30 Days: Yes e-Cigarette/Vaping Use: Never Used Second Hand Smoke Exposure: No Use of substances other than those prescribed or required for medical reasons: No Are you DNR?: No Advance Directives: No Advance Directives Information Provided: Yes service: No Current occupational status: employed Cognitive needs: No Hearing needs: No Vision needs: No Meds Allergies Allergy/AdvReac Type Severity Reaction Status Date / Time Penicillins AdvReac Intermediate Swelling Verified 10/21/21 14:35 Home Medications Medication Instructions Recorded Confirmed Last Taken Type No Known Home Meds 05/04/21 11/01/21 Unknown History Exam Exam Date and Time: October 29, 2021 1025 Assessment and Plan Assessment Anesthesia Assessment: Chart Reviewed Documented by User: Jim Ann MD 11/01/21 11:35 HPI - Anesthesia Eval Consult details Narrative: 41[address] M [address] CT guided biopsy of the back with cord compression (was attempted at [facility] without anesthesia, but pt unable to maintain positioning) patient with b/l LE weakness , waxes and wanes , numbness from T9 and down . patient left Against Medical Advice recently from [facility] . Patient has been advised by multiple doctors to get admitted given his symptoms but patient is non compliant with medical advice . Patient counselled to follow medical advice . [facility] Past Medical History Medical History (Updated 10/22/21 @ 10:11 by Rosi Jane MD) Neuralgia Positive Lyme disease serology Thoracic spine tumor Functional capacity: uses cane/walker Family History Family History Mother No problems noted. Father No problems noted. Family history of problems with anesthesia: No Surgical History Surgical History (Updated 10/22/21 @ 10:11 by Rosi Jane MD) No history of previous surgery History of Problems with Anesthesia: No (No history of prior anesthesia ) Social History Social History Housing: House Alcohol intake: never Patient Tobacco Use Status: Current everyday Tobacco user Tobacco use type: Cigarette Cigarettes Per Day: 3 Years Smoked: 15 Smoked in Last 30 Days: Yes e-Cigarette/Vaping Use: Never Used Second Hand Smoke Exposure: No Use of substances other than those prescribed or required for medical reasons: No Are you DNR?: No Advance Directives: No Advance Directives Information Provided: Yes service: No Current occupational status: employed Cognitive needs: No Hearing needs: No Vision needs: No Meds Allergies Allergy/AdvReac Type Severity Reaction Status Date / Time Penicillins AdvReac Intermediate Swelling Verified 10/21/21 14:35 Home Medications Medication Instructions Recorded Confirmed Last Taken Type No Known Home Meds 05/04/21 11/01/21 Unknown History Exam Airway Mallampati Class: IV TM Dist: >3cm Neck ROM: Full Loose/Missing/Broken Teeth: Yes Heart: rrr Lungs: bl breath sounds Assessment and Plan Assessment Anesthesia Assessment: Anesthesia Plan Discussed Final Anesthetic Review Family History of Problems with Anesthesia: No History of Problems with Anesthesia: No (No history of prior anesthesia ) NPO: Yes ASA Class: III Final Preanesthetic Review: Meds/Allgs Chart Reviewed, Consent Obtained/Reviewed and Anes Risks/Benef Reviewed Patient Risk: Intermediate Procedure Risk: Intermediate Anesthetic Plan Anesthetic Plan: MAC: Disposition: Standard PACU
[2021-11-01] VITALS (7 sets, daily range): BP systolic 131–149; BP diastolic 86–92; PULSE 56–75; RESP 16–18; TEMP 36.4–37.3; O2SAT 98–100; BMI 21.4
--- NOTE | ~2021-11-01 | CT_ITS ---
EXAMINATION: CT-GUIDED FINE-NEEDLE ASPIRATION T10-T11 PARASPINAL MUSCLE AND EPIDURAL LESION. CLINICAL INFORMATION: T10 paraspinal muscular enhancement. There is spinal canal compromise secondary to T2-T4 and T10-T11 posterior epidural space lesion. COMPARISON: MRI thoracic spine 10/14/2021. TECHNIQUE: Following explaining CT-guided aspiration biopsy of paraspinal musculature T10 vertebra and posterior epidural lesion at T10 vertebra, procedure, benefits and risks, written consent was obtained. Patient was placed prone on fluoroscopy table. Preliminary CT imaging was obtained through the T9-T12 vertebrae and an optimal site was selected in the right paramidline region overlying the T10 vertebra and marked. The marked site was cleaned and draped in the usual sterile manner. 1% lidocaine was injected at the marked site. A 20-gauge guide needle was injected in the right paramidline region into the paraspinal muscle and a 3-pass fine-needle biopsy was performed. Subsequently, needle was advanced in the craniocaudad direction inferior to the T11 lamina and into the T10 epidural space and a single biopsy aspiration was obtained under CT fluoroscopy guidance. Postprocedure needle withdrawn and complete hemostasis was achieved at the puncture site. Patient tolerated the procedure extremely well. Conscious sedation was given by anesthesia department. FINDINGS: The T10-T11 disc level paraspinal enhancement seen on MRI was biopsied under CT guidance x 3. The needle was also advanced into the posterior epidural space and posterior epidural mass biopsy was performed at the T10-T11 disc level. Preliminary results were inconclusive. CT/CT guided needle placement IMPRESSION: Successful CT fluoroscopy-guided right paraspinous T10 and T11 vertebral biopsy. Also aspiration biopsy of T10-T11 posterior epidural space was performed.
--- NOTE | ~2021-11-01 | CT_ITS ---
EXAMINATION: CT-GUIDED FINE-NEEDLE ASPIRATION T10-T11 PARASPINAL MUSCLE AND EPIDURAL LESION. CLINICAL INFORMATION: T10 paraspinal muscular enhancement. There is spinal canal compromise secondary to T2-T4 and T10-T11 posterior epidural space lesion. COMPARISON: MRI thoracic spine 10/14/2021. TECHNIQUE: Following explaining CT-guided aspiration biopsy of paraspinal musculature T10 vertebra and posterior epidural lesion at T10 vertebra, procedure, benefits and risks, written consent was obtained. Patient was placed prone on fluoroscopy table. Preliminary CT imaging was obtained through the T9-T12 vertebrae and an optimal site was selected in the right paramidline region overlying the T10 vertebra and marked. The marked site was cleaned and draped in the usual sterile manner. 1% lidocaine was injected at the marked site. A 20-gauge guide needle was injected in the right paramidline region into the paraspinal muscle and a 3-pass fine-needle biopsy was performed. Subsequently, needle was advanced in the craniocaudad direction inferior to the T11 lamina and into the T10 epidural space and a single biopsy aspiration was obtained under CT fluoroscopy guidance. Postprocedure needle withdrawn and complete hemostasis was achieved at the puncture site. Patient tolerated the procedure extremely well. Conscious sedation was given by anesthesia department. FINDINGS: The T10-T11 disc level paraspinal enhancement seen on MRI was biopsied under CT guidance x 3. The needle was also advanced into the posterior epidural space and posterior epidural mass biopsy was performed at the T10-T11 disc level. Preliminary results were inconclusive. CT/CT guided FNA IMPRESSION: Successful CT fluoroscopy-guided right paraspinous T10 and T11 vertebral biopsy. Also aspiration biopsy of T10-T11 posterior epidural space was performed.
[2021-11-01 07:28] LABS: MANUAL DIFF FLAG NO
[2021-11-01 07:32] LABS: Basophils Absolute Auto 0.1 X10*3/uL (0.0-0.2); Basophils Percent Auto 0.8 % (0-2); Eosinophils Absolute Auto 0.5 X10*3/uL (0.0-0.4); Eosinophils Percent Auto 5.6 % (0-4); Hemoglobin 14.4 g/dl (14.0-18.0); Imm Gran Abs Auto 0.02 X10*3/uL (0.00-0.03); Imm Gran Pct Auto 0.2 % (0.0-0.4); Lymphocytes Absolute Auto 4.6 X10*3/uL (1.2-4.9); Lymphocytes Percent Auto 55.5 % (20-40); Mean Corpuscular HGB Conc 32.7 g/dl (31.0-36.0); Mean Corpuscular Hemoglobin 31.2 pg (27.0-33.0); Mean Corpuscular Volume 95.2 fL (80.0-98.0); Mean Platelet Volume 9.7 fL (9.4-12.4); Monocytes Absolute Auto 0.6 X10*3/uL (0.1-1.2); Monocytes Percent Auto 6.7 % (2-11); Neutrophils Absolute Auto 2.6 x10*3/uL (2.0-8.3); Neutrophils Percent Auto 31.2 % (45-73); Platelet Count 304 X10*3/uL (160-400); Red Blood Count 4.62 X10*6/uL (4.60-5.80); Red Cell Distribution Width 13.4 % (11.0-16.0); White Blood Count 8.3 X10*3/uL (4.8-10.8)
[2021-11-01 07:36] LABS: Prothrombin Time 10.8 SEC (9.9-13.0)
[2021-11-01 07:39] LABS: Partial Thromboplastin Time 33.1 SEC (24.1-38.0)
[2021-11-01 07:42] LABS: Anion Gap 12 (12-20); Blood Urea Nitrogen 11 mg/dL (9-16); Carbon Dioxide 27 mmol/L (22-29); Chloride 106 mmol/L (96-108); Estimated Glomerular Filt Rate > 60; Sodium 141 mmol/L (135-145)
[2021-11-01] MEDS: Lactated Ringers 1,000 ML 100 ML IVCONT (08:04)
== END 2021-11-01 12:28 | disposition home or self-care (01) ==
PROVIDERS: Radiology Diagnostic Radiology; PCP Internal Medicine; Visit Provider Radiology Diagnostic Radiology
DX: G95.89 Other specified diseases of spinal cord (principal)
CPT/HCPCS: 10009; 10010; 20206; 36415; 77012; 80051; 82565; 84520; 85025; 85610; 85730; 88172; 88173; 88307; 88333; J2250; J2370; J3010

== ENCOUNTER 2022-02-03 08:00 | Outpatient (RCR) | payer OTHER, SELFPAY | END 2022-02-22 13:43 | disposition home or self-care (01) | LOC: HO.PT 08:00 | PROVIDERS: Visit Provider Internal Medicine | DX: Z98.890 Other specified postprocedural states (principal) | CPT/HCPCS: 97110; 97112; 97162; 97530 ==

== ENCOUNTER 2022-02-03 08:58 | Outpatient (REF) | payer OTHER, SELFPAY ==
--- NOTE | ~2022-02-03 | CT_ITS ---
EXAMINATION: CT CHEST WITH CONTRAST CLINICAL INFORMATION: Lung nodules. History of T8 bone lesion and paraspinal muscle enhancement. COMPARISON: None TECHNIQUE: Multidetector volumetric CT imaging of the chest was obtained after the administration of 85 mL of Omnipaque 350 intravenous contrast without immediate adverse reactions. Axial MIP volume rendering provided. Sagittal and coronal reformatted images were obtained. This CT examination was performed using dose optimization techniques as appropriate, variously including the following: *Automated exposure control *Adjustment of mA and/or kV according to patient size (this includes techniques or standardized protocols for targeted exams where dose is matched to indication/reason for exam; i.e. extremities or head) *Use of iterative reconstruction technique DLP: 109 mGy-cm FINDINGS: LUNGS: Evaluation of the lungs is limited at the lung bases due to artifact from respiratory motion. There are numerous scattered solid and semisolid pulmonary nodules. Largest right pulmonary nodule is a 5 x 9 mm peripheral or subpleural groundglass attenuation nodule in the right lower lobe axial image 330 series 7. There is a heterogeneous partially solid partially groundglass attenuation left lower lobe nodule. Solid component measures 3 mm. More peripheral groundglass component measures centimeter axial image 186 series 7. There is a solid nodule 6 mm in the left lower lobe axial image 237 series 7. There are several heterogeneous groundglass attenuation left lower lobe nodules measuring 6 mm axial image 3:15 series 7. There are several focal cystic lesions in the left upper lobe. The largest appears branching or tubular and may represent focal bronchiectasis that measures 8 x 20 mm axial image 237 series 7. There are numerous other smaller pulmonary nodules. MEDIASTINUM: There are small mediastinal and bilateral hilar lymph nodes. No enlarged lymph nodes are seen. The heart size is normal. There is no pericardial effusion. PLEURA: There is no pleural effusion. No pleural mass or thickening. AXILLA: No lymphadenopathy. UPPER ABDOMEN: See abdominal and pelvic CT report from the same day OSSEOUS STRUCTURES: There is a heterogeneous lesion in the T8 vertebral body. There is slight loss of height of the left superior endplate interval for Schmorl's nodes versus mild compression fracture. This appears unchanged from MRI September 2021. No paraspinal soft tissue mass is seen. CT/CT chest w con IMPRESSION: Limited exam due to artifact from respiratory motion at the lung bases. Multiple bilateral heterogeneous pulmonary nodules. Comparison with old outside exams recommended. Stable appearance to the T8 vertebral body. No paraspinal soft tissue mass appreciated. Fleischner guidelines were followed.
--- NOTE | ~2022-02-03 | CT_ITS ---
EXAMINATION: CT ABDOMEN AND PELVIS WITH CONTRAST CLINICAL INFORMATION: Liver density seen on outside imaging COMPARISON: None TECHNIQUE: Multidetector volumetric images were obtained from the superior aspect of the liver through the pubic symphysis following administration 85 mL of Omnipaque 350 intravenous contrast. Sagittal and coronal reformatted images were obtained on the technologist's workstation. Oral contrast: Yes This CT examination was performed using dose optimization techniques as appropriate, variously including the following: *Automated exposure control *Adjustment of mA and/or kV according to patient size (this includes techniques or standardized protocols for targeted exams where dose is matched to indication/reason for exam; i.e. extremities or head) *Use of iterative reconstruction technique DLP: 319 mGy-cm FINDINGS: LIVER, GALLBLADDER, AND BILIARY TREE: There are 2 small low-attenuation lesions measuring 4 mm in the anterior segment of the right lobe axial image 15 and in the posterior segment of the right lobe axial image 21 series 3. This is difficult to characterize due to small size. The liver is otherwise unremarkable. The gallbladder is. There is no biliary duct dilatation. PANCREAS: Unremarkable. SPLEEN: Unremarkable. ADRENAL GLANDS: Unremarkable. KIDNEYS AND URETERS: The kidneys are normal in size, shape, and attenuation. No hydronephrosis, hydroureter, or calculi seen. No perinephric stranding. BLADDER: Unremarkable. GASTROINTESTINAL TRACT: The small and large bowel are unremarkable. The appendix is unremarkable. ABDOMINAL WALL: No significant hernia is appreciated. LYMPH NODES: Normal. VASCULAR: Unremarkable. PELVIC VISCERA: Unremarkable. OSSEOUS STRUCTURES: Probable hemangioma in the L3 vertebral body. Degenerative disc disease at L5-S1. CT/CT abdomen pelvis w con IMPRESSION: Two small 3 mm low-attenuation lesions in the liver difficult to characterize due to small size. Otherwise unremarkable exam. Fleischner guidelines were followed.
[2022-02-03 08:07] LABS: Blood Urea Nitrogen 9 mg/dL (9-16); Estimated Glomerular Filt Rate > 60
[2022-02-03] MEDS: iohexoL 350 MG/ML 100 ML INFUS..BTL IV (09:53)
== END 2022-02-03 08:59 | disposition home or self-care (01) ==
LOC: HO.CT 08:58
PROVIDERS: Visit Provider Internal Medicine
DX: D49.2 Neoplasm of unspecified behavior of bone, soft tissue, and skin (principal)
CPT/HCPCS: 36415; 71260; 74177; 82565; 84520; Q9967

== ENCOUNTER 2022-10-11 06:09 | Outpatient (REF) | payer OTHER, SELFPAY ==
--- NOTE | ~2022-10-11 | CT_ITS ---
EXAMINATION: CT CHEST WITH CONTRAST CLINICAL INFORMATION: Lung nodules. Spine mass post resection. COMPARISON: Previous chest CT January 2022 TECHNIQUE: Multidetector volumetric CT imaging of the chest was obtained after the administration of 85 mL of Omnipaque 350 intravenous contrast without immediate adverse reactions. Axial MIP volume rendering provided. Sagittal and coronal reformatted images were obtained. This CT examination was performed using dose optimization techniques as appropriate, variously including the following: *Automated exposure control *Adjustment of mA and/or kV according to patient size (this includes techniques or standardized protocols for targeted exams where dose is matched to indication/reason for exam; i.e. extremities or head) *Use of iterative reconstruction technique DLP: 177 mGy-cm FINDINGS: LUNGS: There is a heterogeneous partially solid partially groundglass attenuation left lower lobe nodule. Groundglass attenuation component measures 1 x 1.2 cm axial image 228 series 7. Appears slightly increased in density but not appreciably changed in size compared to January 2022. Central solid nodular component measures 3 mm axial image 227 series 7 which is stable. The predominantly solid left lower lobe nodule with slightly spiculated margins measures 7 mm in greatest dimension axial image 279 series 7 and is stable. Heterogeneous or semisolid 4 mm right lower lobe nodule axial image 285 and axial image 293 series 7 are stable. 5 mm solid left lower lobe nodule axial image 11/14/1938 is stable. Heterogeneous partially solid partially groundglass attenuation peripheral or subpleural right lower lobe nodule axial image 394 series 7. There is a new central solid component measuring 3 mm. Larger surrounding more peripheral groundglass component measures 1 cm and does not appear appreciably changed. Question slight interval increase in density in the peripheral or subpleural semisolid right lower lobe nodule measuring 8 mm, measuring more solid, axial image 447 series 7. Stable semisolid 3 mm right lower lobe nodule axial image 432 series 7. Focal cystic change in the left upper lobe axial image 283 series 7. Stable. MEDIASTINUM: The mediastinum is normal. PLEURA: There is no pleural effusion. No pleural mass or thickening. AXILLA: No lymphadenopathy. UPPER ABDOMEN: See abdominal and pelvic CT from the same day. OSSEOUS STRUCTURES: Mild compression fracture of the superior endplate of the T8 vertebral body. There is heterogeneous attenuation questionable for focal bone lesion in the superior endplate of the T8 vertebral body. This appears unchanged. There is question of a small midline posterior lucent lesion in the posterior T9 vertebral body measuring 8 mm. This is stable.. There are new postsurgical changes following T9 laminectomy. CT/CT chest w IV con IMPRESSION: There is slight interval change in the bilateral lower lobe pulmonary nodules as described above. No new pulmonary nodule is seen. Continued chest CT follow-up as per protocol. New postsurgical change following T9 laminectomy. Fleischner guidelines were followed.
--- NOTE | ~2022-10-11 | CT_ITS ---
EXAMINATION: CT ABDOMEN AND PELVIS WITH CONTRAST CLINICAL INFORMATION: History thoracic spine mass (atypical epithelioid hemangioma); positive lyme disease serology. COMPARISON: CT abdomen and pelvis 02/03/2022, CT chest 02/03/2022, MR thoracic spine 10/12/2021. TECHNIQUE: Multidetector volumetric images were obtained from the superior aspect of the liver through the pubic symphysis following administration 85 mL of Omnipaque 350 intravenous contrast. Sagittal and coronal reformatted images were obtained on the technologist's workstation. Oral contrast: Yes This CT examination was performed using dose optimization techniques as appropriate, variously including the following: *Automated exposure control *Adjustment of mA and/or kV according to patient size (this includes techniques or standardized protocols for targeted exams where dose is matched to indication/reason for exam; i.e. extremities or head) *Use of iterative reconstruction technique DLP: 457 mGy-cm FINDINGS: LUNG BASES: No airspace consolidation or effusion. CT chest described in separate report. LIVER, GALLBLADDER, AND BILIARY TREE: The liver is normal in size and smooth in contour. There are two subcentimeter hypodense lesions right lobe similar to prior study, likely tiny cysts. There is no interval hepatic parenchymal lesion or intrahepatic ductal dilatation. The gallbladder is unremarkable. No extrahepatic ductal dilatation. PANCREAS: Unremarkable. SPLEEN: Unremarkable. ADRENAL GLANDS: Unremarkable. KIDNEYS AND URETERS: The kidneys are normal in size, shape, and attenuation. No hydronephrosis, hydroureter, or calculi seen. No perinephric stranding. BLADDER: Unremarkable. GASTROINTESTINAL TRACT: No bowel obstruction or focal inflammatory changes. The appendix is normal. There is moderate stool in the colon. Probable small duodenal diverticulum. No ascites or fluid collection. ABDOMINAL WALL: No significant hernia is appreciated. LYMPH NODES: No lymphadenopathy. VASCULAR: Congenital retroaortic left renal vein. PELVIC VISCERA: Unremarkable. OSSEOUS STRUCTURES: No acute bony abnormality. Small bone island again noted left hip and probable small vertebral body hemangiomas posterior T10 and central L4 vertebrae. CT/CT abdomen pelvis w IV con IMPRESSION: -No significant changes from prior exam 02/03/2022. -2 probable tiny liver cysts, stable
[2022-10-11] MEDS: iohexoL 350 MG/ML 100 ML INFUS..BTL 85 ML IV (09:01)
[2022-10-11] MEDS: Barium Sulfate Oral (Berry) 450 ML ORAL.SUSP 900 ML PO (09:02)
== END 2022-10-11 06:10 | disposition home or self-care (01) ==
LOC: HO.CT 06:09
PROVIDERS: Visit Provider Internal Medicine
DX: D49.2 Neoplasm of unspecified behavior of bone, soft tissue, and skin (principal); R91.8 Other nonspecific abnormal finding of lung field
CPT/HCPCS: 71260; 74177; Q9967

== ENCOUNTER 2022-12-27 13:25 | Outpatient (REF) | payer OTHER, SELFPAY ==
--- NOTE | ~2022-12-27 | MR_ITS ---
EXAMINATION: MR THORACIC SPINE WITHOUT AND WITH CONTRAST CLINICAL INFORMATION: Thoracic resection of tumor. COMPARISON: Thoracic spine MRI 10/12/2021. TECHNIQUE: MRI of the thoracic spine was obtained using routine sequences without and with contrast. A total of 9 mL Gadavist was intravenously administered. 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 There is mild amount of thin dural enhancement within the resection bed but no evidence of residual or recurrent disease in this region. The additional epidural mass seen dorsally at the T10-T11 level on the prior exam is no longer seen. There is a stable chronic superior endplate compression fracture at T8 with minimal amount of marrow edema. No new compression fractures seen. There is no evidence of gross marrow infiltration. There is a prominent hemangioma at the T9 level without interval change. There is no significant disc herniation. The spinal canal and neural foramina are patent. There is no cord compression or cord signal abnormality. The extraspinal soft tissues are within normal limits. 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 No evidence of residual or recurrent disease. The additional epidural mass seen dorsally at the T10-T11 level on the prior exam is no longer seen. No new abnormal enhancement. No new or acute findings. No significant narrowing of the spinal canal or neural foramina.
== END 2022-12-27 13:26 | disposition home or self-care (01) ==
LOC: HO.MRI 13:25
PROVIDERS: PCP Internal Medicine; Visit Provider Neurological Surgery
DX: D43.4 Neoplasm of uncertain behavior of spinal cord (principal)
CPT/HCPCS: 72157; A9585

== ENCOUNTER 2024-06-06 10:59 | Outpatient (AMB) | payer OTHER, SELFPAY ==
[2024-06-06 11:02] VITALS: BP 126/76; PULSE 93; O2SAT 97; BMI 22.4
--- NOTE | 2024-06-06 11:02 | A.OFFPC_ITS ---
Vital Signs 06/06/24 11:02 Height 6 ft 4 in Weight 184 lb BMI 22.4 BP 126/76 Blood Pressure Location Lt brachial Position Sitting Pulse 93 Pulse Source Pulse Oximeter Pulse Oximetry (%) 97 Oxygen Delivery Method Room Air Intake Visit Reasons: Annual PE [employer] Specialist Required: No Accompanied by: Self / Same As Patient Allergies Penicillins Adverse Reaction (Intermediate, Verified 06/06/24 11:05) Swelling Medication List - Last Reconciled 06/07/24 by Martir Young MD No Known Home Meds Tobacco use date assessed: 06/06/24 Dental Screening Dental Screen Date: 06/06/24 Did you have a dental visit in the last 12 months?: No Did you have a dental problem in the last 6 months where you did not have access to dental care?: No Was dental information given to patient?: Patient has dentist HPI Annual PE HPI Details healthy COUNTS INCLUDE 234 BEDS AT THE [facility] Medical History 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 Father No problems noted. Social History Household Members: None Housing: House Alcohol intake: never Patient Tobacco Use Status: Never used Tobacco (mariujana) Tobacco use type: Cigarette Years Smoked: 15 e-Cigarette/Vaping Use: Never Used Second Hand Smoke Exposure: No Substance Use Type: Marijuana service: No Current occupational status: employed Current occupational exposures/hazards: No Cognitive needs: No Hearing needs: No Vision needs: No Questionnaire PHQ-9 Over the last 2 weeks, how often have you been bothered by any of the following problems? 1. Little interest or pleasure in doing things: not at all 2. Feeling down, depressed, or hopeless: not at all 3. Trouble falling or staying asleep, or sleeping too much: not at all 4. Feeling tired or having little energy: not at all 5. Poor appetite or overeating: not at all 6. Feeling bad about yourself - or that you are a failure or have let yourself or your family down: not at all 7. Trouble concentrating on things, such as reading the newspaper or watching television: not at all 8. Moving or speaking so slowly that other people could have noticed. Or the opposite - being so fidgety or restless that you have been moving around a lot more than usual: not at all 9. Thoughts that you would be better off or of hurting yourself in some way: not at all Total score: 0 Depression Screening Interpretation: Negative Depression Screening Done: Yes Source: Developed by Drs. Charly Peterson, Jim Pineda and colleagues, with an educational desi from [employer]. Thrive Questionnaire Date Thrive assessed: 06/06/24 I am a: Patient What is your living situation today?: I have a steady place to live Within the past 12 months, did the food you bought not last and you didn't have the money to get more?: Never true Within the past 12 months, did you worry whether your food would run out before you got money to buy more?: Never true THRIVE Score: 0 AUDIT C Alcohol Use Questionnaire (AUDIT-C) 1. How often do you have a drink containing alcohol?: Monthly or less 2. How many drinks containing alcohol do you have on a typical day when you are drinking?: 1 or 2 3. How often do you have six or more drinks on one occasion?: Never Total Score: 1 LIZA-7 AMB Questionnaire LIZA-7 Date LIZA - 7 assessed: 06/06/24 Feeling nervous, anxious, or on edge: 0 = Not at all Not being able to stop or control worryin = Not at all Worrying too much about different things: 0 = Not at all Trouble relaxin = Not at all Being so restless that it is hard to sit still: 0 = Not at all Becoming easily annoyed or irritable: 0 = Not at all Feeling afraid as if something awful might happen: 0 = Not at all Total LIZA-7 score (0-4 normal; 5-9 mild; 10-14 moderate; 15-21 severe): 0 Source: Developed by Drs. Charly Peterson, Jim Pineda and colleagues, with an educational desi from [employer]. LIZA-7 Assessment Billing LIZA-7 Assessment Tool: LIZA-7 Assessment 54102 Review of Systems Const Denies chills, Denies fatigue, Denies headache(s) and Denies weight loss Eyes Denies change in vision, Denies diplopia and Denies eye pain ENT Denies vertigo, Denies dizziness, Denies headache(s) and Denies nasal discharge Card Denies chest pain, Denies rapid heart rate and Denies dyspnea on exertion Resp Denies chest congestion, Denies cough, Denies pain with cough and Denies dyspnea on exertion GI Denies abdominal pain, Denies hematochezia and Denies change in bowel habits Musc Denies myalgias, Denies arthralgias and Denies joint swelling Skin/Breast Denies lesions and Denies unusual bruising Neuro Denies vertigo, Denies dizziness, Denies headache(s) and Denies focal weakness Endo Denies fatigue Physical exam (Primary Care) Vital Signs: Last Vital Signs Pulse 93 06/06/24 11:02 BP 126/76 06/06/24 11:02 Pulse Ox 97 06/06/24 11:02 Oxygen Delivery Method Room Air 06/06/24 11:02 BMI result Body Mass Index 22.4 Tobacco/Smoking Status: Tobacco use Status Tobacco use date assessed 06/06/24 06/06/24 11:08 Patient Tobacco Use Status Never used Tobacco ( 06/06/24 11:08 damon) Tobacco use type Cigarette 06/06/24 11:08 e-Cigarette/Vaping Use Never Used 06/06/24 11:08 PHQ-9: PHQ-9 Score PHQ-9: Total score 0 06/06/24 11:08 Depression Screening Interpretation: Negative Thrive Assessment: Date of Thrive Assessment Date Thrive assessed 06/06/24 06/06/24 11:08 Const General: cooperative, healthy appearing and no acute distress Orientation/consciousness: oriented to person, oriented to place and oriented to time HENMT Head: Yes normal to inspection, Yes normocephalic and Yes atraumatic Mouth: Normal oral and palatal mucosa present and tongue normal Throat: Yes posterior oropharynx normal and Yes uvula midline Eyes General: appearance normal, both eyes and all related structures Neck Neck: Yes normal visual inspection, Yes full ROM and Yes no lymphadenopathy Thyroid: Thyroid normal Carotids: normal carotid upstroke Chest Chest palpation & inspection: normal inspection of the chest Resp Effort & Inspection: normal respiratory effort and able to speak in complete sentences Auscultation: clear to auscultation bilaterally Cardio Jugular venous distension: no JVD Palpation: normal PMI Rate: regular rate Rhythm: regular rhythm Heart sounds: S1 normal heart sound present and S2 normal heart sound present GI Inspection: Yes normal to inspection Palpation (GI): Soft to palpation and No hepatosplenomegaly present Auscultation: normal bowel sounds General: Yes no CVA tenderness Back/Spine/Pelvis Back: no CVA tenderness Skin General skin exam: no rashes or lesions noted Neuro General: oriented to person, oriented to place and oriented to time Extrem General: Yes normal to inspection and Yes full ROM Coding Level of Care Code Est Pt Prev Care 40-64y(03837) Diagnoses Physical exam Z00.00 Additional Codes LIZA-7 Assessment Billing - LIZA-7 Assessment Tool: LIZA-7 Assessment 63015 ([id number]) PHQ-9 - 00042 - PHQ-9 Billing: ([id number]) Assessment & Plan Assessment & Plan (1) Physical exam: Code(s): Z00.00 - Encounter for general adult medical examination without abnormal findings Category: Medical Plan: stable; do labs Orders: Orders Comprehensive [place]. Panel Fast 06/06/24 Z13.9 - Encounter for screening, unspecified Lipid Panel 06/06/24 Z13.220 - Encounter for screening for lipoid disorders Thyroid Stimulating Hormone 06/06/24 Z13.29 - Encounter for screening for other suspected endocrine disorder Complete Blood Count Auto Diff 06/06/24 Z13.0 - Encounter for screening for diseases of the blood and blood-forming organs and certain disorders involving the immune mechanism Referrals Gastroenterology Referral Z53.20 - Procedure and treatment not carried out because of patient's decision for unspecified reasons
== END 2024-06-06 11:42 | disposition home or self-care (01) ==
PROVIDERS: PCP Internal Medicine; Visit Provider Internal Medicine
DX: Z00.00 Encounter for general adult medical examination without abnormal findings (principal)

== ENCOUNTER → 2024-06-06 10:59 | Outpatient (BNVA) | payer SELFPAY | PROVIDERS: PCP Internal Medicine; Visit Provider Internal Medicine | DX: Z00.00 Encounter for general adult medical examination without abnormal findings (principal) | CPT/HCPCS: 96127; 99396 ==

== ENCOUNTER 2024-06-13 12:57 | Outpatient (REF) | payer OTHER, SELFPAY ==
[2024-06-13 13:11] LABS: MANUAL DIFF FLAG NO
[2024-06-13 14:13] LABS: Basophils Absolute Auto 0.1 X10*3/uL (0.0-0.2); Basophils Percent Auto 1.1 % (0-2); Eosinophils Absolute Auto 0.4 X10*3/uL (0.0-0.4); Eosinophils Percent Auto 4.2 % (0-4); Hematocrit 45.4 % (42.0-52.0); Hemoglobin 15.6 g/dl (14.0-18.0); Imm Gran Abs Auto 0.03 X10*3/uL (0.00-0.03); Imm Gran Pct Auto 0.3 % (0.0-0.4); Lymphocytes Absolute Auto 4.3 X10*3/uL (1.2-4.9); Lymphocytes Percent Auto 44.5 % (20-40); Mean Corpuscular HGB Conc 34.4 g/dl (31.0-36.0); Mean Platelet Volume 9.6 fL (9.4-12.4); Monocytes Absolute Auto 0.8 X10*3/uL (0.1-1.2); Monocytes Percent Auto 8.7 % (2-11); Neutrophils Percent Auto 41.2 % (45-73); Platelet Count 517 X10*3/uL (160-400); Red Blood Count 4.88 X10*6/uL (4.60-5.80); White Blood Count 9.6 X10*3/uL (4.8-10.8)
[2024-06-13 15:08] LABS: Alanine Aminotransferase 9 U/L (0-40); Alkaline Phosphatase 82 U/L (39-117); Anion Gap 12 (12-20); Aspartate Amino Transferase 24 U/L (5-37); Bilirubin Total 0.6 mg/dL (0.0-1.0); Blood Urea Nitrogen 7 mg/dL (9-16); Calcium 9.8 mg/dL (8.4-10.2); Carbon Dioxide 28 mmol/L (22-29); Chloride 105 mmol/L (96-108); Cholesterol 201 mg/dL (<200); Estimated Glomerular Filt Rate > 60; Glucose Fasting 84 mg/dL (60-99); HDL Cholesterol 52 mg/dL (>40); LDL Cholesterol Calculated 130 mg/dL (<100); Potassium 3.3 mmol/L (3.3-5.1); Sodium 142 mmol/L (135-145); Total Protein 7.5 g/dL (6.5-8.0); Triglycerides 99 mg/dL (<150)
[2024-06-13 15:15] LABS: Thyroid Stimulating Hormone 0.89 uIU/mL (0.32-4.0)
== END 2024-06-13 12:58 | disposition home or self-care (01) ==
LOC: HO.LAB 12:57
PROVIDERS: PCP Internal Medicine; Visit Provider Internal Medicine
DX: Z13.0 Encounter for screening for diseases of the blood and blood-forming organs and certain disorders involving the immune mechanism (principal); Z13.9 Encounter for screening, unspecified; Z13.220 Encounter for screening for lipoid disorders; Z13.29 Encounter for screening for other suspected endocrine disorder
CPT/HCPCS: 36415; 80053; 80061; 84443; 85025

== ENCOUNTER 2024-12-10 09:49 | Outpatient (AMB) | payer OTHER, SELFPAY ==
[2024-12-10 09:51] VITALS: BP 134/90; PULSE 83; RESP 14; TEMP 37.1; O2SAT 99; BMI 22.5
--- NOTE | 2024-12-10 09:51 | A.OFFPC_ITS ---
Vital Signs 12/10/24 09:51 Height 6 ft 4 in Weight 185 lb 3.2 oz BMI 22.5 BP 134/90 H Blood Pressure Location Lt brachial Position Sitting Respiration 14 Pulse 83 Pulse Source Pulse Oximeter Temp 98.7 F Temp Source Oral Pulse Oximetry (%) 99 Oxygen Delivery Method Room Air Intake Visit Reasons: CALLUM DR Young Green Building Engineer Required: No Accompanied by: Self / Same As Patient Allergies Penicillins Adverse Reaction (Intermediate, Verified 12/10/24 10:22) Swelling Medication List - Last Reconciled 12/10/24 by MOSES Garcia No Known Home Meds Tobacco use date assessed: 12/10/24 Dental Screening Dental Screen Date: 12/10/24 Did you have a dental visit in the last 12 months?: No Did you have a dental problem in the last 6 months where you did not have access to dental care?: No Was dental information given to patient?: Patient has dentist HPI CALLUM DR Young HPI Details The patient is a 44-year-old male presenting transition of care from Dr. Young who retired. The patient reports that his ex-girlfriend reported being positive for a possibly gonorrhea. Patient reports that he had next for la bs to be done to be checked but no STD panels was ordered. Apparently, the patient was not clear about what health issues he was concerned about, and only the generalized labs were ordered. He reports previous presentation in May- June of the last year for a blood screen which was not followed up appropriately and is now concerned about a possible sexually transmitted infection following a past partner's positive test for gonorrhea and his own prior symptoms of dysuria. There is a significant past medical history of Lyme disease with neurological involvement, complicated by a thoracic spine tumor removal. The Lyme disease led to severe symptoms, addressed only after multiple cycles of ineffective medication and culminated in the discovery and surgical management of a spinal tumor. The patient reports substantial post-surgical relief, although certain symptoms persist. Additionally, the patient notes that his last cholesterol screen revealed elevated LDL levels, possibly exacerbated by dietary indiscretions over the preceding months. He understands the need for dietary adjustments to mitigate cardiovascular risks. The patient also has a persistent issue with dermatological lesions, initially addressed by dermatology with inadequate results, prompting further investigation into potential HPV relations discussed in previous consultations. [facility] Medical History (Updated 12/11/24 @ 22:22 by MOSES Garcia) 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 Father No problems noted. Social History Household Members: None Housing: House Alcohol intake: never Patient Tobacco Use Status: Never used Tobacco Tobacco use type: Cigarette Years Smoked: 15 e-Cigarette/Vaping Use: Never Used Second Hand Smoke Exposure: No Substance Use Type: Marijuana service: No Current occupational status: employed Current occupational exposures/hazards: No Cognitive needs: No Hearing needs: No Vision needs: No Questionnaire PHQ-9 Over the last 2 weeks, how often have you been bothered by any of the following problems? 1. Little interest or pleasure in doing things: not at all 2. Feeling down, depressed, or hopeless: not at all 3. Trouble falling or staying asleep, or sleeping too much: not at all 4. Feeling tired or having little energy: not at all 5. Poor appetite or overeating: not at all 6. Feeling bad about yourself - or that you are a failure or have let yourself or your family down: not at all 7. Trouble concentrating on things, such as reading the newspaper or watching t elevision: not at all 8. Moving or speaking so slowly that other people could have noticed. Or the opposite - being so fidgety or restless that you have been moving around a lot more than usual: not at all 9. Thoughts that you would be better off or of hurting yourself in some way: not at all Total score: 0 Depression Screening Interpretation: Negative Depression Screening Done: Yes 20821 - PHQ-9 Billing: Yes Source: Developed by Drs. Charly Peterson, Alesha Gaytan, Jim Santoyo and colleagues, with an educational desi from [employer]. Thrive Questionnaire Date Thrive assessed: 06/06/24 I am a: Patient What is your living situation today?: I have a steady place to live Within the past 12 months, did the food you bought not last and you didn't have the money to get more?: Never true Within the past 12 months, did you worry whether your food would run out before you got money to buy more?: Never true Do you have trouble paying for medicines?: No Do you have trouble getting transportation to medical appointments?: No Do you have trouble paying your heating and electricity bill?: No Do you have trouble taking care of your child, family member or friend?: No Do you have trouble with day-to-day activities such as bathing, preparing meals, shopping, managing finances, etc.?: No Are you currently unemployed and looking for a job?: No Are you interested in more education?: No Please select the resources that you would like help with: None Currently or been in a relationship where the following occur: No concerns reported THRIVE Score: 0 AUDIT C Alcohol Use Questionnaire (AUDIT-C) 1. How often do you have a drink containing alcohol?: Monthly or less 2. How many drinks containing alcohol do you have on a typical day when you are drinking?: 1 or 2 3. How often do you have six or more drinks on one occasion?: Never Total Score: 1 Score Reviewed/Action Taken: No LIZA-7 AMB Questionnaire LIZA-7 Date LIZA - 7 assessed: 12/10/24 Feeling nervous, anxious, or on edge: 0 = Not at all Not being able to stop or control worryin = Not at all Worrying too much about different things: 0 = Not at all Trouble relaxin = Not at all Being so restless that it is hard to sit still: 0 = Not at all Becoming easily annoyed or irritable: 0 = Not at all Feeling afraid as if something awful might happen: 0 = Not at all Total LIZA-7 score (0-4 normal; 5-9 mild; 10-14 moderate; 15-21 severe): 0 Source: Developed by Drs. Charly Peterson, Alesha Gaytan, Jim Santoyo and colleagues, with an educational desi from [employer] LIZA-7 Assessment Billing LIZA-7 Assessment Tool: LIZA-7 Assessment 54681 Review of Systems Const Denies headache(s) and Reports lethargy Eyes Denies loss of vision ENT Denies vertigo, Denies dizziness, Denies headache(s) and Denies sore throat Card Denies chest pain, Denies leg edema and Denies lightheadedness Resp Denies cough, Denies hemoptysis and Denies wheezing GI Denies abdominal pain, Denies melena, Denies constipation, Denies diarrhea and Denies vomiting Denies dysuria, Denies urinary frequency and Denies urinary urgency Musc Denies arthralgias, Denies joint swelling, Reports numbness (feet, post spinal tumor removal) and Denies tingling Skin/Breast Reports other (recurrent warts on the sole of feet and hands) Neuro Denies Abnormal speech present, Denies behavioral changes, Denies vertigo, Denies dizziness, Denies headache(s), Denies loss of vision, Denies memory loss, Reports numbness (feet, post spinal tumor removal) and Denies tingling Psych Denies anxiety, Denies behavioral changes, Denies depression, Denies memory loss and Denies panic attacks Blas/Lymph Denies easy bleeding and Denies easy bruising Aller/Immun Denies wheezing Physical exam (Primary Care) Vital Signs: Last Vital Signs Temp 98.7 F 12/10/24 09:51 Pulse 83 12/10/24 09:51 Resp 14 12/10/24 09:51 BP 134/90 H 12/10/24 09:51 Pulse Ox 99 12/10/24 09:51 Oxygen Delivery Method Room Air 12/10/24 09:51 BMI result Body Mass Index 22.5 Tobacco/Smoking Status: Tobacco use Status Tobacco use date assessed 12/10/24 12/10/24 10:03 Patient Tobacco Use Status Never used Tobacco 12/10/24 10:03 Tobacco use type Cigarette 12/10/24 10:03 e-Cigarette/Vaping Use Never Used 12/10/24 10:03 PHQ-9: PHQ-9 Score PHQ-9: Total score 0 12/10/24 10:52 Depression Screening Interpretation: Negative Thrive Assessment: Date of Thrive Assessment Date Thrive assessed 06/06/24 12/10/24 10:03 Currently or been in a relationship where the following occur: No concerns reported Const General: healthy appearing, no acute distress, alert and awake Nutritional Appearance: well nourished Orientation/consciousness: oriented to person, oriented to place and oriented to time HENMT Ears: TM's normal bilaterally General nose exam: Normal nasal mucous membranes and turbinates present Eyes Conjunctivae: conjunctivae normal Sclerae: sclerae normal Pupils: Equal, round and reactive pupils present Neck Neck: Yes no lymphadenopathy and Yes no JVD Thyroid: Thyroid normal Carotids: no bruits Resp Effort & Inspection: normal respiratory effort and not tachypneic Auscultation: no crackles, no rales, no rhonchi and no wheezes Cardio Rate: regular rate Rhythm: regular rhythm Heart sounds: no murmurs and normal S1 and S2 GI Palpation (GI): Soft to palpation, nontender, no hepatomegaly and no splenomegaly Auscultation: normal bowel sounds Skin General skin exam: dry skin Lesions: lesion noted (dark brown wart-appearing spots in the palm of hands) Neuro General: oriented to person, oriented to place and oriented to time Cranial nerves: Yes Equal, round and reactive pupils present Speech: No Abnormal speech present Gait exam (Neuro): Normal gait present Motor exam (neuro): no tremor noted Extrem Right upper extremity: full ROM Left upper extremity: full ROM Right lower extremity: full ROM; no edema Left lower extremity: full ROM; no edema Psych Mental Status: mental status grossly normal Speech and movement: Normal speech and movement present Affect: normal affect Attitude: cooperative Thought process: Normal thought process present Coding Level of Care Code Est Pt Level 4 (01394) Diagnoses Skin papilloma D23.9 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 Positive Lyme disease serology R76.8 Neuralgia M79.2 Arthralgia of both knees M25.561; M25.562 Joint pain location: knee Laterality: bilateral Lyme disease A69.20 Additional Codes LIZA-7 Assessment Billing - LIZA-7 Assessment Tool: LIZA-7 Assessment 85585 ([id number]) PHQ-9 - 48603 - PHQ-9 Billing: Yes ([id number]) Time Spent (min) 40 Assessment & Plan Assessment & Plan (1) Skin papilloma: Code(s): D23.9 - Other benign neoplasm of skin, unspecified Category: Medical (2) Thoracic spine tumor: Code(s): D49.2 - Neoplasm of unspecified behavior of bone, soft tissue, and skin Category: Medical (3) Positive Lyme disease serology: Code(s): R76.8 - Other specified abnormal immunological findings in serum Category: Medical (4) Neuralgia: Code(s): M79.2 - Neuralgia and neuritis, unspecified Category: Medical (5) Joint pain: Code(s): M25.50 - Pain in unspecified joint Category: Medical Qualifiers: Joint pain location: knee Laterality: bilateral Qualified Code(s): M25.561 - Pain in right knee; M25.562 - Pain in left knee (6) Lyme disease: Code(s): A69.20 - Lyme disease, unspecified Category: Medical Plan The strategy is to perform an STD panel to assess for any sexually transmitted infections, given the concerns risen from past experiences. The patient will proceed with a fasting lipid panel to ascertain the current state of his lipidemia and monitor dietary intervention progress. It is vital that dietary modification aims to reduce cholesterol by limiting intake of high-fat foods, with follow-up lipid profiling in a few months to assess improvement. Dermatological concerns potentially linked to HPV will be further evaluated, and I discussed the importance of consistent monitoring and tailored rehabilitation for neurological recovery post-spinal tumor surgery. Regular follow-up is essential to ensure timely intervention and support. Patient was informed and verbally consented to the use of an ambient scribe for clinic note documentation during this visit. Orders: Orders Complete Blood Count Auto Diff Today Z00.00 - Encounter for general adult medical examination without abnormal findings TSH reflex Free T4 Today Z00.00 - Encounter for general adult medical ex amination without abnormal findings Syphilis Screen Today Z00.00 - Encounter for general adult medical examination without abnormal findings Vitamin D 25-OH Total Today Z00.00 - Encounter for general adult medical examination without abnormal findings Glucose Fasting Today Z00.00 - Encounter for general adult medical examination without abnormal findings Comprehensive [place]. Panel Fast Today Z00.00 - Encounter for general adult medical examination without abnormal findings Lipid Panel Today Z00.00 - Encounter for general adult medical examination without abnormal findings UA CC w/rflx Micro + Cult Today Z00.00 - Encounter for general adult medical examination without abnormal findings CT NG by PCR 12/10/24 Z00.00 - Encounter for general adult medical examination without abnormal findings, Z11.3 - Encounter for screening for infections with a predominantly sexual mode of transmission HIV Ab/Ag Today Z00.00 - Encounter for general adult medical examination without abnormal findings Patient Instructions: - Schedule STD testing and blood work for fasting lipid panel tomorrow morning after a 12-hour fast. - Adjust diet to reduce foods high in cholesterol, such as fried items, butter, and heavy meats. - Arrange a follow-up appointment in seven weeks to review results. - Engage in gentle strengthening exercises as able to aid in recovery from spinal surgery. - Monitor for any new symptoms or significant changes in health status, and seek medical attention if necessary. - Continue to explore options for dermal concerns and liaise with dermatology as needed.
--- OUTSIDE RECORDS SUMMARY | 2024-12-10 11:00 | XMS_ITS | Patient Health Record ---
Author Organization [facility] Address [address] [place] [address] Care Team Providers Care Wreath Inspector Name Role Phone Hannah MADRID, Martir Primary Care Provider Charly Schafer Unavailable [phone] Reason For Referral No Information Encounters Encounter Location Date Provider Diagnosis [facility] [address] [place] [address] 10/08/2024 Charly Brunson Plan Of Treatment No Information Insurance Providers Payer Name Payer Address Payer Phone Subscriber Number Group Number Insured Name Patient Relationship to Insured Coverage Start Date Coverage End Date [facility] [address] [address] [place], [place] [id number] PÉREZ PIZARRO Self - patient is the insured
--- OUTSIDE RECORDS SUMMARY | 2024-12-10 11:00 | XMS_ITS | Clinical Summary ---
Author Organization [facility] Address [address] [place] [address] Care Team Providers Care Centura Technical Lead Senior Developer Name Role Phone Martir Young MD Primary Care Provider [phone] Surgical History Surgery Date Site/Laterality Comments BACK SURGERY 11/23/2021 PROCEDURE: HISTORICAL BACK SURGERY; COMMENT: Thoracic lami for resection of tumor Social History Tobacco Use Types Packs/Day Years Used Date Smoking Tobacco: Every Day Smokeless Tobacco: Never Sex and Gender Information Value Date Recorded Sex Assigned at Not on file Legal Sex Male 11:24 AM EST Gender Identity Not on file Sexual Orientation Not on file Obstetrics History Last Filed Vital Signs Vital Sign Reading Time Taken Comments Blood Pressure - - Pulse - - Temperature - - Respiratory Rate - - Oxygen Saturation - - Inhaled Oxygen Concentration - - Weight 81.6 kg (180 lb) 12/03/2021 11:48 AM EDT Height 193 cm (6' 4 ) 12/03/2021 11:48 AM EDT Body Mass Index 21.91 12/03/2021 11:48 AM EDT Plan of Treatment Health Maintenance Due Date Last Done Comments DTaP,Tdap,and Td Vaccines (1 - Tdap) 1997 Hepatitis B Vaccines (1 of 3 - 19+ 3-dose series) 1997 Pneumococcal Vaccine: Pediat rics (0 to 5 Years) and At-Risk Patients (6 to 64 Years) (1 of 2 - PCV) 1997 Cholesterol Screening (Lipid Panel) 07/19/2022 Colorectal Cancer Screening: Colonoscopy 07/19/2022 Depression Screening 07/19/2022 HIV Screening 07/19/2022 Hepatitis C Screening 07/19/2022 Social Influencers of Health Screening 07/19/2022 COVID-19 Vaccine (2023-2 5 season) 2024 Influenza Vaccine (Season Ended) 2025 HIB Vaccines Aged Out No longer eligi ble based on patient's age to complete this topic HPV Vaccines Aged Out No longer eligi ble based on patient's age to complete this topic Hepatitis A Vaccines Aged Out No long er eligible based on patient's age to complete this topic IPV Vaccines Aged Out No longer eligi ble based on patient's age to complete this topic MMR Vaccines Aged Out No longer eligi ble based on patient's age to complete this topic Meningococcal ACWY Vaccine Aged Out N o longer eligible based on patient's age to complete this topic Meningococcal B Vaccine Aged Out No l onger eligible based on patient's age to complete this topic RSV Immunization Patients Un susy 20 months Aged Out No longer eligible b ased on patient's age to complete this topic Varicella Vaccines Aged Out No longer eligible based on patient's age to complete this topic Care Teams Centura Technical Lead Senior Developer Relationship Specialty Start Date End Date Martir Young MD [address] [place] [address] [address] [place] [address] PCP - General Internal Medicine 11/11/21
--- OUTSIDE RECORDS SUMMARY | 2024-12-10 11:01 | XMS_ITS ---
Author Organization [facility] Address [address] [place] [address] Care Team Providers Care Balloon Design Printer Name Role Phone Hannah MADRID, Martir Primary Care Provider Charly Schafer [phone] Encounters Encounter Location Date Provider Diagnosis [facility] [address] [place] [address] 10/08/2024 Charly Brunson Plan Of Treatment No Information Progress Notes * QASIM PIZARROOB:1980 ( 44 yo M)Acc No.[id number]:10/08/2024 Patient:?PÉREZ PIZARRO :1980???Age:44 Y???Sex:Male Address:[address] [place] [address] , [place], [address] * true * Date:? Generated for Aimee zepeda/Flower/eTransmitting on:?12/10/2024 11:00 AM EDT
--- OUTSIDE RECORDS SUMMARY | 2024-12-10 11:01 | XMS_ITS ---
Author Organization [facility] Address [address] [place] [address] Care Team Providers Care Salvage Worker Name Role Phone Hannah MADRID, Martir Primary Care Provider Charly Schafer [facility] [phone] REASON FOR VISIT Patient presents today for a COLON SCREENING Encounters Encounter Location Date Provider Diagnosis [facility] [address] [place] [address] 10/08/2024 Charly Brunson Plan Of Treatment No Information Progress Notes * QASIM PIZARROOB:1980 ( 44 yo M)Acc No.[id number]:10/08/2024 Progress Notes Patient:?PÉREZ PIZARRO Provider:?Charly Brunson MD :1980???Age:44 Y???Sex:Male Eugenio e:10/08/2024 Address:[address] [place], [place] [id number] Pcp:Martir Young MD Subjective: * Chief Complaints: * ???1. Patient presents today for a COLON SCREENING. * Medical History:? Objective: * Vitals:? Assessment: Plan: * Treatment: * * The named appointment provid er may or may not be the originator of this progress note, and it is not deemed complete until electronically signed by the appointment provider. Sign off status: Pending * Provider:?Charly Brunson MD Date:? 025 Generated for Aimee zepeda/Flower/Jannysmitting on:?12/10/2024 11:00 AM EDT
== END 2024-12-10 10:58 | disposition home or self-care (01) ==
LOC: HO.HMCH 09:49
PROVIDERS: PCP Internal Medicine
DX: D23.9 Other benign neoplasm of skin, unspecified (principal); D49.2 Neoplasm of unspecified behavior of bone, soft tissue, and skin; R76.8 Other specified abnormal immunological findings in serum; M79.2 Neuralgia and neuritis, unspecified; M25.561 Pain in right knee; M25.562 Pain in left knee; A69.20 Lyme disease, unspecified

== ENCOUNTER → 2024-12-10 09:49 | Outpatient (BNVA) | payer OTHER, SELFPAY | PROVIDERS: PCP Internal Medicine | DX: D23.9 Other benign neoplasm of skin, unspecified (principal); D49.2 Neoplasm of unspecified behavior of bone, soft tissue, and skin; R76.8 Other specified abnormal immunological findings in serum; M79.2 Neuralgia and neuritis, unspecified; M25.561 Pain in right knee; M25.562 Pain in left knee; A69.20 Lyme disease, unspecified | CPT/HCPCS: 96127; 99212 ==

== ENCOUNTER 2024-12-11 13:52 | Outpatient (REF) | payer OTHER, SELFPAY ==
[2024-12-11 14:36] LABS: Basophils Absolute Auto 0.1 X10*3/uL (0.0-0.2); Basophils Percent Auto 1.4 % (0-2); Eosinophils Absolute Auto 0.3 X10*3/uL (0.0-0.4); Eosinophils Percent Auto 4.1 % (0-4); Hematocrit 46.6 % (42.0-52.0); Hemoglobin 15.7 g/dl (14.0-18.0); Imm Gran Abs Auto 0.02 X10*3/uL (0.00-0.03); Imm Gran Pct Auto 0.3 % (0.0-0.4); Lymphocytes Absolute Auto 4.5 X10*3/uL (1.2-4.9); Lymphocytes Percent Auto 61.5 % (20-40); MANUAL DIFF FLAG SCAN; Mean Corpuscular HGB Conc 33.7 g/dl (31.0-36.0); Mean Corpuscular Hemoglobin 31.4 pg (27.0-33.0); Mean Corpuscular Volume 93.2 fL (80.0-98.0); Monocytes Absolute Auto 0.6 X10*3/uL (0.1-1.2); Monocytes Percent Auto 7.7 % (2-11); Neutrophils Absolute Auto 1.8 x10*3/uL (2.0-8.3); Platelet Count 374 X10*3/uL (160-400); Red Cell Distribution Width 13.4 % (11.0-16.0); SCAN SMEAR FLAG 1; White Blood Count 7.3 X10*3/uL (4.8-10.8)
[2024-12-11 14:37] LABS: Appearance Urine Clear; Color Urine Yellow; Glucose Urine UA Negative (Negative); Leukocyte Esterase Urine Small (1+) (Negative); Nitrite Urine Negative (Negative); UMIC TRIGGER UACC YES; Urine Blood Negative (Negative); Urine Ketones Negative (Negative); Urine Protein Trace mg/dL (Neg-Trace)
[2024-12-11 14:43] LABS: Bacteria Urine None Seen (None Seen); Hyaline Casts Urine 0-2 /LPF (0-2); RBC Urine 0-2 /HPF (0-2); Squamous Epithelial Cell Urine 0-2 /HPF (0-2); UACC Culture Trigger YES; WBC Urine 21-50 /HPF (0-5)
[2024-12-11 14:53] LABS: SLIDE REVIEW VERIFIED
[2024-12-11 15:03] LABS: Alanine Aminotransferase 16 U/L (0-40); Albumin Level 4.1 g/dL (3.5-5.0); Alkaline Phosphatase 81 U/L (39-117); Anion Gap 11 (12-20); Aspartate Amino Transferase 22 U/L (5-37); Bilirubin Total 0.6 mg/dL (0.0-1.0); Blood Urea Nitrogen 10 mg/dL (9-16); Carbon Dioxide 26 mmol/L (22-29); Chloride 108 mmol/L (96-108); Cholesterol 187 mg/dL (<200); Estimated Glomerular Filt Rate > 60; Glucose Fasting 82 mg/dL (60-99); HDL Cholesterol 58 mg/dL (>40); LDL Cholesterol Calculated 107 mg/dL (<100); Potassium 4.2 mmol/L (3.3-5.1); Sodium 141 mmol/L (135-145); Total Protein 6.9 g/dL (6.5-8.0); Triglycerides 113 mg/dL (<150)
[2024-12-11 15:18] LABS: TSH reflex Free T4 1.12 uIU/mL (0.32-4.0); Vitamin D 25-OH Total 4.3 ng/mL (>30)
--- OUTSIDE RECORDS SUMMARY | 2024-12-11 16:37 | XMS_ITS ---
Author Organization [facility] Address [address] [place] [address] Care Team Providers Care Head Host/Hostess Name Role Phone Hannah MADRID, Martir Primary Care Provider Charly Schafer [facility] [phone] REASON FOR VISIT Patient presents today for a COLON SCREENING Encounters Encounter Location Date Provider Diagnosis [facility] [address] [place] [address] 10/08/2024 Charly Brunson Plan Of Treatment No Information Progress Notes * QASIM PIZARROOB:1980 ( 44 yo M)Acc No.[id number]:10/08/2024 Progress Notes Patient:?PÉREZ PIZARRO Provider:?Charly Brunson MD :1980???Age:44 Y???Sex:Male Eugenio e:10/08/2024 Address:[address] [place], [place] [id number] Pcp:Martir Young MD Subjective: * Chief Complaints: [...] MD Date:? 025 Generated for Aimee zepeda/Flower/Jannysmitting on:?12/11/2024 04:37 PM EDT
--- OUTSIDE RECORDS SUMMARY | 2024-12-11 16:37 | XMS_ITS ---
Author Organization [facility] Address [address] [place] [address] Care Team Providers Care Health Records Technology Teacher Name Role Phone Hannah MADRID, Martir Primary Care Provider Charly Schafer [phone] Encounters Encounter Location Date Provider Diagnosis [facility] [address] [place] [address] 10/08/2024 Charly Brunson Plan Of Treatment No Information Progress Notes * QASIM PIZARROOB:1980 ( 44 yo M)Acc No.[id number]:10/08/2024 Patient:?PÉREZ PIZARRO :1980???Age:44 Y???Sex:Male Address:[address] [place] [address] , [place], [address] * true * Date:? Generated for Aimee zepeda/Flower/eTransmitting on:?12/11/2024 04:37 PM EDT
--- OUTSIDE RECORDS SUMMARY | 2024-12-11 16:37 | XMS_ITS | Patient Health Record ---
Author Organization [facility] Address [address] [place] [address] Care Team Providers Care Business And Financial Counsel Name Role Phone Hannah MADRID, Martir Primary Care Provider Charly Schafer Unavailable [phone] Reason For Referral No Information Encounters Encounter Location Date Provider Diagnosis [facility] [address] [place] [phone] 10/08/2024 Charly Brunson Plan Of Treatment No Information Insurance Providers Payer Name Payer Address Payer Phone Subscriber Number Group Number Insured Name Patient Relationship to Insured Coverage Start Date Coverage End Date [facility] [address] [address] [place], [place] [id number] PÉREZ PIZARRO Self - patient is the insured
--- OUTSIDE RECORDS SUMMARY | 2024-12-11 16:37 | XMS_ITS | Clinical Summary ---
Author Organization [facility] Address [address] [place] [address] Care Team Providers Care Hide Or Skin Buffer Name Role Phone Martir Young MD Primary Care Provider [phone] Surgical History Surgery Date Site/Laterality Comments BACK [...] age to complete this topic Care Teams Hide Or Skin Buffer Relationship Specialty Start Date End Date Martir Young MD [address] [place] [address] [address] [place] [address] PCP - General Internal Medicine 11/11/21
[2024-12-12 03:56] LABS: Syphilis Screen Nonreactive (Nonreactive)
[2024-12-12 04:04] LABS: HIV AB/AG Nonreactive (Nonreactive); HIV Num 1 0.07 S/CO (0.00-0.99)
== END 2024-12-11 13:53 | disposition home or self-care (01) ==
LOC: HO.LAB 13:52
DX: Z00.00 Encounter for general adult medical examination without abnormal findings (principal); Z11.4 Encounter for screening for human immunodeficiency virus [HIV]; Z13.220 Encounter for screening for lipoid disorders; Z11.3 Encounter for screening for infections with a predominantly sexual mode of transmission; Z13.29 Encounter for screening for other suspected endocrine disorder; Z13.228 Encounter for screening for other metabolic disorders; Z13.9 Encounter for screening, unspecified
CPT/HCPCS: 36415; 80053; 80061; 81001; 82306; 84443; 85025; 86780; 87086; 87389

== ENCOUNTER 2025-01-28 08:58 | Outpatient (AMB) | payer OTHER, SELFPAY ==
--- NOTE | 2025-01-28 09:00 | A.OFFPC_ITS ---
Vital Signs 01/28/25 09:01 Height 6 ft 4 in Weight 181 lb BMI 22.0 BP 126/82 Blood Pressure Location Lt brachial Position Sitting Pulse 85 Pulse Source Pulse Oximeter Pulse Oximetry (%) 99 Oxygen Delivery Method Room Air Intake Visit Reasons: Follow Up Forest[employer] Required: No Accompanied by: Self / Same As Patient Allergies Penicillins Adverse Reaction (Intermediate, Verified 01/28/25 09:16) Swelling Medication List - Last Reconciled 01/28/25 by MOSES Garcia cholecalciferol (vitamin D3) 50 mcg PO DAILY Tobacco use date assessed: 01/28/25 Dental Screening Dental Screen Date: 01/28/25 Did you have a dental visit in the last 12 months?: No Did you have a dental problem in the last 6 months where you did not have access to dental care?: No Was dental information given to patient?: Patient has dentist HPI Follow Up HPI Details The patient is a 44-year-old male who is presenting for follow up appointment Reports that he is doing well overall and has no new concerns He recently was started on vitamin-D 3 due to his levels significantly low Per patient, he purposely stays out of the sun because he over heats quickly even though his originally from [place] climate Still has concerns about wart-like lesions on his soles and palms 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 Father No problems noted. Social History Household Members: None Housing: House Alcohol intake: never Patient Tobacco Use Status: Never used Tobacco Tobacco use type: Cigarette Years Smoked: 15 e-Cigarette/Vaping Use: Never Used Second Hand Smoke Exposure: No Substance Use Type: Marijuana service: No Current occupational status: employed Current occupational exposures/hazards: No Cognitive needs: No Hearing needs: No Vision needs: No Questionnaire PHQ-9 Over the last 2 weeks, how often have you been bothered by any of the following problems? 1. Little interest or pleasure in doing things: not at all 2. Feeling down, depressed, or hopeless: not at all 3. Trouble falling or staying asleep, or sleeping too much: not at all 4. Feeling tired or having little energy: not at all 5. Poor appetite or overeating: not at all 6. Feeling bad about yourself - or that you are a failure or have let yourself or your family down: not at all 7. Trouble concentrating on things, such as reading the newspaper or watching television: not at all 8. Moving or speaking so slowly that other people could have noticed. Or the opposite - being so fidgety or restless that you have been moving around a lot more than usual: not at all 9. Thoughts that you would be better off or of hurting yourself in some way: not at all Total score: 0 Source: Developed by Drs. Charly Peterson, Alesha Gaytan, Jim Santoyo and colleagues, with an educational desi from [employer]. Thrive Questionnaire Date Thrive assessed: 01/28/25 I am a: Patient What is your living situation today?: I have a steady place to live Within the past 12 months, did the food you bought not last and you didn't have the money to get more?: Never true Within the past 12 months, did you worry whether your food would run out before you got money to buy more?: Never true Do you have trouble paying for medicines?: No Do you have trouble getting transportation to medical appointments?: No Do you have trouble paying your heating and electricity bill?: No Do you have trouble taking care of your child, family member or friend?: No Do you have trouble with day-to-day activities such as bathing, preparing meals, shopping, managing finances, etc.?: No Are you currently unemployed and looking for a job?: No Are you interested in more education?: I choose not to answer this question Please select the resources that you would like help with: None Currently or been in a relationship where the following occur: No concerns reported THRIVE Score: 0 AUDIT C Alcohol Use Questionnaire (AUDIT-C) 1. How often do you have a drink containing alcohol?: 2-4 times a month 2. How many drinks containing alcohol do you have on a typical day when you are drinking?: 1 or 2 3. How often do you have six or more drinks on one occasion?: Never Total Score: 2 LIZA-7 AMB Questionnaire LIZA-7 Date LIZA - 7 assessed: 01/28/25 Feeling nervous, anxious, or on edge: 0 = Not at all Not being able to stop or control worryin = Not at all Worrying too much about different things: 0 = Not at all Trouble relaxin = Not at all Being so restless that it is hard to sit still: 0 = Not at all Becoming easily annoyed or irritable: 0 = Not at all Feeling afraid as if something awful might happen: 0 = Not at all Total LIZA-7 score (0-4 normal; 5-9 mild; 10-14 moderate; 15-21 severe): 0 Source: Developed by Drs. Charly Peterson, Alesha Gaytan, Jim Santoyo and colleagues, with an educational desi from [employer]. Review of Systems Const Denies headache(s) Eyes Denies loss of vision ENT Denies vertigo, Denies dizziness, Denies headache(s) and Denies sore throat Card Denies chest pain, Denies leg edema and Denies lightheadedness Resp Denies cough, Denies hemoptysis and Denies wheezing GI Denies abdominal pain, Denies melena, Denies constipation, Denies diarrhea and Denies vomiting Denies dysuria, Denies urinary frequency and Denies urinary urgency Musc Denies arthralgias, Denies joint swelling, Reports numbness (feet) and Reports tingling (feet s/p spinal tumor removal) Skin/Breast Reports other (wart-appearing areas to palms and soles) Neuro Denies Abnormal speech present, Denies behavioral changes, Denies vertigo, Denies dizziness, Denies headache(s), Denies loss of vision, Denies memory loss, Reports numbness (feet) and Reports tingling (feet s/p spinal tumor removal) Psych Denies anxiety, Denies behavioral changes, Denies depression, Denies memory loss and Denies panic attacks Blas/Lymph Denies easy bleeding and Denies easy bruising Aller/Immun Denies wheezing Physical exam (Primary Care) Vital Signs: Last Vital Signs Pulse 85 01/28/25 09:01 BP 126/82 01/28/25 09:01 Pulse Ox 99 01/28/25 09:01 Oxygen Delivery Method Room Air 01/28/25 09:01 BMI result Body Mass Index 22.0 Tobacco/Smoking Status: Tobacco use Status Tobacco use date assessed 01/28/25 01/28/25 09:06 Patient Tobacco Use Status Never used Tobacco 01/28/25 09:06 Tobacco use type Cigarette 01/28/25 09:06 e-Cigarette/Vaping Use Never Used 01/28/25 09:06 PHQ-9: PHQ-9 Score PHQ-9: Total score 0 01/28/25 09:06 Thrive Assessment: Date of Thrive Assessment Date Thrive assessed 01/28/25 01/28/25 09:06 Currently or been in a relationship where the following occur: No concerns reported Const General: healthy appearing, no acute distress, alert and awake Nutritional Appearance: well nourished Orientation/consciousness: oriented to person, oriented to place and oriented to time HENMT Ears: TM's normal bilaterally General nose exam: Normal nasal mucous membranes and turbinates present Eyes Conjunctivae: conjunctivae normal Sclerae: sclerae normal Pupils: Equal, round and reactive pupils present Neck Neck: Yes no lymphadenopathy and Yes no JVD Thyroid: Thyroid normal Carotids: no bruits Resp Effort & Inspection: normal respiratory effort and not tachypneic Auscultation: no crackles, no rales, no rhonchi and no wheezes Cardio Rate: regular rate Rhythm: regular rhythm Heart sounds: no murmurs and normal S1 and S2 GI Palpation (GI): Soft to palpation, nontender, no hepatomegaly and no splenomegaly Auscultation: normal bowel sounds Skin General skin exam: dry skin and other (dark-brown wart appearing areas to palms and soles) Neuro General: oriented to person, oriented to place and oriented to time Cranial nerves: Yes Equal, round and reactive pupils present Speech: No Abnormal speech present Gait exam (Neuro): Normal gait present Motor exam (neuro): no tremor noted Extrem Right upper extremity: full ROM Left upper extremity: full ROM Right lower extremity: full ROM; no edema Left lower extremity: full ROM; no edema Psych Mental Status: mental status grossly normal Speech and movement: Normal speech and movement present Affect: normal affect Attitude: cooperative Thought process: Normal thought process present Results Reviewed Results Reviewed: Laboratory Tests 12/11/24 12/11/24 13:58 14:00 WBC 7.3 RBC 5.00 Hgb 15.7 Hct 46.6 MCV 93.2 MCH 31.4 MCHC 33.7 RDW 13.4 Plt Count 374 D Sodium 141 Potassium 4.2 D Chloride 108 Carbon Dioxide 26 Anion Gap 11 L BUN 10 Creatinine 0.94 Estimated GFR > 60 Fasting Glucose 82 Calcium 9.0 D Total Bilirubin 0.6 AST 22 ALT 16 Alkaline Phosphatase 81 Total Protein 6.9 Albumin 4.1 Triglycerides 113 Cholesterol 187 LDL Cholesterol, Calc 107 H HDL Cholesterol 58 25-OH Vitamin D Total 4.3 L TSH 1.12 Urine Color Yellow Urine Appearance Clear Urine pH 8.0 Ur Specific [place] 1.020 Urine Protein Trace Urine Glucose (UA) Negative Urine Ketones Negative Urine Blood Negative Urine Nitrite Negative Ur Leukocyte Esterase Small (1+) H Urine RBC 0-2 Urine WBC 21-50 H Ur Squamous Epith Cells 0-2 Urine Bacteria None Seen Hyaline Casts 0-2 Coding Level of Care Code Est Pt Level 3 (17686) Diagnoses Pure hypercholesterolemia E78.00 Vitamin D deficiency E55.9 Skin papilloma D23.9 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 Time Spent (min) 35 Assessment & Plan Assessment & Plan (1) Pure hypercholesterolemia: Code(s): E78.00 - Pure hypercholesterolemia, unspecified Category: Medical Plan: LDL 107, was 130 on the previous lab-improved Discussed lifestyle modifications including dietary changes and physical activity (2) Vitamin D deficiency: Code(s): E55.9 - Vitamin D deficiency, unspecified Category: Medical Plan: Cholecalciferol 50 mcg was started recently (3) Skin papilloma: Code(s): D23.9 - Other benign neoplasm of skin, unspecified Category: Medical Plan: wart-like brown spots to palms and soles will refer the patient to dermatology (4) Thoracic spine tumor: Code(s): D49.2 - Neoplasm of unspecified behavior of bone, soft tissue, and skin Category: Medical Plan: s/p spinal tumor removal Continue to have numbness and tingling in bilateral feet Reports that he is coping with this at this time No new treatment added Plan Patient to return in 3 months to discuss these chronic issues and examined follow up blood work Orders: Orders Comprehensive [place]. Panel Fast 3 Months A69.20 - Lyme disease, unspecified, D23.9 - Other benign neoplasm of skin, unspecified, D49.2 - Neoplasm of unspecified behavior of bone, soft tissue, and skin, E55.9 - Vitamin D deficiency, unspecified, E78.00 - Pure hypercholesterolemia, unspecified, M25.561 - Pain in right knee, M25.562 - Pain in left knee, M79.2 - Neuralgia and neuritis, unspecified, R76.8 - Other specified abnormal immunological findings in serum TSH reflex Free T4 3 Months A69.20 - Lyme disease, unspecified, D23.9 - Other benign neoplasm of skin, unspecified, D49.2 - Neoplasm of unspecified behavior of bone, soft tissue, and skin, E55.9 - Vitamin D deficiency, unspecified, E78.00 - Pure hypercholesterolemia, unspecified, M25.561 - Pain in right knee, M25.562 - Pain in left knee, M79.2 - Neuralgia and neuritis, unspecified, R76.8 - Other specified abnormal immunological findings in serum Vitamin D 25-OH Total 3 Months A69.20 - Lyme disease, unspecified, D23.9 - Other benign neoplasm of skin, unspecified, D49.2 - Neoplasm of unspecified behavior of bone, soft tissue, and skin, E55.9 - Vitamin D deficiency, unspecified, E78.00 - Pure hypercholesterolemia, unspecified, M25.561 - Pain in right knee, M25.562 - Pain in left knee, M79.2 - Neuralgia and neuritis, unspecified, R76.8 - Other specified abnormal immunological findings in serum Complete Blood Count Auto Diff 3 Months A69.20 - Lyme disease, unspecified, D23.9 - Other benign neoplasm of skin, unspecified, D49.2 - Neoplasm of unspecified behavior of bone, soft tissue, and skin, E55.9 - Vitamin D deficiency, unspecified, E78.00 - Pure hypercholesterolemia, unspecified, M25.561 - Pain in right knee, M25.562 - Pain in left knee, M79.2 - Neuralgia and neuritis, unspecified, R76.8 - Other specified abnormal immunological findings in serum Lipid Panel 3 Months A69.20 - Lyme disease, unspecified, D23.9 - Other benign neoplasm of skin, unspecified, D49.2 - Neoplasm of unspecified behavior of bone, soft tissue, and skin, E55.9 - Vitamin D deficiency, unspecified, E78.00 - Pure hypercholesterolemia, unspecified, M25.561 - Pain in right knee, M25.562 - Pain in left knee, M79.2 - Neuralgia and neuritis, unspecified, R76.8 - Other specified abnormal immunological findings in serum Referrals Dermatology Referral D23.9 - Other benign neoplasm of skin, unspecified
[2025-01-28 09:01] VITALS: BP 126/82; PULSE 85; O2SAT 99; BMI 22.0
--- OUTSIDE RECORDS SUMMARY | 2025-01-28 09:36 | XMS_ITS | Clinical Summary ---
Author Organization [facility] Address [id number] [place] [id number] Care Team Providers Care Cigarette Maker Name Role Phone Martir Young MD Primary Care Provider [phone] Surgical History Surgery Date Site/Laterality Comments BACK [...] age to complete this topic Care Teams Cigarette Maker Relationship Specialty Start Date End Date Martir Young MD [address] [place] [address] [address] [place] [address] PCP - General Internal Medicine 11/11/21
== END 2025-01-28 09:39 | disposition home or self-care (01) ==
LOC: HO.HMCH 08:59
PROVIDERS: PCP Internal Medicine
DX: E78.00 Pure hypercholesterolemia, unspecified (principal); E55.9 Vitamin D deficiency, unspecified; D23.9 Other benign neoplasm of skin, unspecified; D49.2 Neoplasm of unspecified behavior of bone, soft tissue, and skin

== ENCOUNTER → 2025-01-28 08:58 | Outpatient (BNVA) | payer OTHER, SELFPAY | PROVIDERS: PCP Internal Medicine | DX: E78.00 Pure hypercholesterolemia, unspecified (principal); E55.9 Vitamin D deficiency, unspecified; D23.9 Other benign neoplasm of skin, unspecified; D49.2 Neoplasm of unspecified behavior of bone, soft tissue, and skin; Z13.30 Encounter for screening examination for mental health and behavioral disorders, unspecified | CPT/HCPCS: 99212 ==